=== PATIENT | male | born 1965 ===

== ENCOUNTER 2022-10-09 08:58 | Emergency (ER) | payer OTHER, SELFPAY ==
--- NOTE | ~2022-10-09 | XR_ITS ---
EXAMINATION: XR CHEST CLINICAL INFORMATION: Productive cough. COMPARISON: None available. TECHNIQUE: 2 views of the chest were obtained. FINDINGS: No significant abnormality is noted involving the heart, lungs, mediastinum, bony thorax or soft tissues. XR/XR chest 2V IMPRESSION: No acute cardiopulmonary process.
[2022-10-09 09:18] VITALS: BP 171/81; PULSE 68; RESP 16; TEMP 36.1; O2SAT 98
[2022-10-09 11:03] LABS: IDNOW Serial# 08D9AD1C; Strep A Nucleic Acid Negative (Negative)
--- NOTE | 2022-10-09 11:03 | ED_ITS ---
HPI - General Adult General Chief complaint: General Medical Stated complaint: Sore Throat Time Seen by Provider: 10/09/22 10:57 Source: patient, family and news reporter Mode of arrival: ambulatory Limitations: language barrier History of Present Illness HPI narrative: Patient is a 57-year-old male presenting to the emergency department with complaint of sore throat for three days as well as cough productive of yellow sputum. Denies fevers. 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 Patient reports that his symptoms worsen when at work. States patient does not typically wear a mask at work. Denies difficulty swallowing or eating/drinking. Denies shortness of breath. He has tried an OTC cough medicine as well as cough drops with little relief. Denies any chest pain, lower extremity edema, calf tenderness or swelling. MD complaint: sore throat, cough Onset (ago): day(s) Radiation: non-radiation Pain Consistency: constant Exacerbating factors: eating Associated symptoms: cough Treatments prior to arrival: other (OTC cough medicine) Related Data Previous Rx's Medication Instructions Recorded benzonatate 100 mg capsule 100 mg PO TID PRN cough #14 caps 10/09/22 Allergies Allergy/AdvReac Type Severity Reaction Status Date / Time No Known Allergies Allergy Verified 10/09/22 09:16 Review of Systems Review of Systems: As per HPI. Yes all other systems are reviewed and are negative Constitutional: Constitutional: Reports as per HPI [facility] Social History Social History Advance Directives: No Advance Directives Information Provided: Yes Physical Exam ED Vital Signs: Vital Signs - 24 hr 10/09/22 09:18 Temperature 97 F Pulse Rate 68 Respiratory Rate 16 Blood Pressure 171/81 H Pulse Oximetry 98 Oxygen Delivery Method Room Air BMI result Body Mass Index 30.0 Vital signs have been reviewed and appear to be correct. Blood pressure elevated. Heart rate normal. Respiratory rate normal. Temperature normal. Oxygen saturation normal. Const General: cooperative, healthy appearing and no acute distress Orientation/consciousness: oriented to person, oriented to place, oriented to time and patient oriented x3 Limitations: no limitations HENMT Head: Yes normocephalic and Yes atraumatic Ears: external ears normal, TM's normal bilaterally and EAC's normal General nose exam: Normal external nose present, Normal nares present and Normal septum present Face and sinus: Yes face symmetric Mouth: Normal oral and palatal mucosa present, oropharynx normal and moist mucous membranes Throat: Yes uvula midline, Yes posterior oropharynx abnormal (erythematous, no edema or exudate) and No uvular edema Eyes Pupils: Equal, round and reactive pupils present Neck Neck: Yes normal visual inspection, Yes no lymphadenopathy and Yes supple Resp Effort & Inspection: normal respiratory effort and able to speak in complete sentences Auscultation: clear to auscultation bilaterally Cardio Rate: regular rate Rhythm: regular rhythm Heart sounds: S1 normal heart sound present and S2 normal heart sound present GI Palpation (GI): Soft to palpation and nontender Auscultation: normoactive bowel sounds General: Yes no CVA tenderness Back/Spine/Pelvis Back: no CVA tenderness Skin General skin exam: elasticity normal and turgor normal Neuro General: oriented to person, oriented to place, oriented to time, patient oriented x3, moves all extremities, no focal motor deficits and CN's II-XI intact bilaterally Cranial nerves: Yes Equal, round and reactive pupils present Cognition (Neuro): normal cognition Extrem General: Yes full ROM, Yes no pedal edema and Yes no calf tenderness Psych Mental Status: mental status grossly normal Affect: normal affect Thought process: Normal thought process present Medical Decision Making Medical Decision Making MDM Narrative: Patient is a 57-year-old male presenting to the emergency department with complaint of sore throat for three days as well as cough productive of yellow sputum. On exam patient is awake, A+Ox3, VS WNL, afebrile, normal neurological exam without focal deficits, mild erythema to posterior oropharynx, no edema or exudate, no lymphadenopathy, LS CTA throughout. Given reported symptoms and physical exam findings, initial differential includes strep pharyngitis, viral pharyngitis/URI, allergic rhinitis, pneumonia. Labs notable for negative strep/flu/Covid . X-ray notable for no acute abnormalities. My interpretation is in agreement with the radiologist's interpretation. Feel symptoms are likely related to viral pharyngitis and/or allergen in the workplace. All results discussed and questions answered. Discussed with patient that symptoms should resolve on their own in the next few days. Return precautions discussed at bedside. Advised patient to utilize a mask at work if his area seems dirty/contaminated. Will prescribe benzonatate as needed for cough. Instructed patient to follow up with PCP this week regarding elevated BP readings in the ED. Patient and verbalized understanding of and agreement with plan. Differential Diagnosis Differential Diagnoses: The differential diagnosis associated with the presentation includes As per [facility]. Lab Data [facility] Lab Attestation statement: I reviewed the patient's lab results. As per [facility]. Labs: Lab Results 10/09/22 10/09/22 10/09/22 Range/Units 10:49 11:16 11:16 COVID-19 (JAMES) Negative (Negative) COVID-19 Clin Com See Note Influenza Type A (DELISA) Negative (Negative) Influenza Type B (DELISA) Negative (Negative) Influenza A & B Note See Note S. pyogenes GrpA DELISA Negative (Negative) Independent Interpretation I performed an independent interpretation of an: Plain X-Ray Interpretation: No acute abnormalities Radiology Impression Discussion of test interpretation with radiology: I have reviewed the radiologist's reading. Radiologist Impression: FINDINGS: No significant abnormality is noted involving the heart, lungs, mediastinum, bony thorax or soft tissues. XR/XR chest 2V IMPRESSION: No acute cardiopulmonary process. Independent Historian Clinical information obtained from an independent historian. History obtained from or confirmed by: Spouse External Record Review External record reviewed: Inpatient record, Office record and Outpatient record Prescription Management I considered prescription management with: Other (benzonatate) Discharge Plan Discharge Clinical Impression: Acute viral pharyngitis, Cough, HBP (high blood pressure) Patient Disposition: Home, Self-Care Instructions: Pharyngitis (ED), Hypertension (ED), Acute Cough (ED) Additional Instructions: Hoy lo evaluaron en el departamento de emergencias por dolor de garganta y tos. Clark radiograf?a de t?rax no mostr? evidencia de neumon?a. Lo m?s probable es que clark dolor de garganta se deba a amparo enfermedad viral que mejorar? por s? ligia con descanso y l?quidos. Clark tos podr?a estar relacionada con la enfermedad viral, kenia tambi?n podr?a empeorar con el polvo y la suciedad en clark lugar de trabajo. Debe usar amparo m?scara en el trabajo si siente que clark tos empeora all?. Le est?n recetando benzonatato para la tos. Programe amparo james de seguimiento con clark m?dico de atenci?n primaria dentro de los 2 d?as. Clark presi?n arterial era idalia en el servicio de urgencias hoy, mencione esto a clark proveedor de atenci?n primaria para amparo evaluaci?n adicional. Regrese al departamento de emergencias si experimenta tos que empeora, fiebre de 100.4? F o m?s, v?mitos recurrentes, dolor en el pecho, dificultad para respirar o cualquier otro s?ntoma preocupante. Prescriptions: New benzonatate 100 mg capsule 100 mg PO TID PRN (Reason: cough) Qty: 14 0RF Print Language: Arabic
[2022-10-09 11:37] LABS: COVID-19 Test Negative (Negative); IDNOW Serial# BCCEAD1C
[2022-10-09 11:38] LABS: IDNOW Serial# 9DB6401D; Influenza A Negative (Negative); Influenza B2 Negative (Negative)
[2022-10-09 13:03] VITALS: BP 185/92; PULSE 65; RESP 16; TEMP 36.4; O2SAT 99
--- NOTE | 2022-10-09 13:15 | PC.NURSE ---
aox4. calm, cooperative. uderstands instructions- no questions. walks well. no distress
== END 2022-10-09 13:16 | disposition home or self-care (01) ==
PROVIDERS: Registered Nurse Emergency; Emergency Provider Emergency Medicine
DX: J02.8 Acute pharyngitis due to other specified organisms (principal); R05.9 Cough, unspecified; I10 Essential (primary) hypertension; Z20.822 Contact with and (suspected) exposure to COVID-19
CPT/HCPCS: 71046; 87502; 87635; 87651; 99283

== ENCOUNTER 2023-02-26 10:52 | Outpatient (REF) | payer OTHER, SELFPAY ==
[2023-02-26 13:38] LABS: MANUAL DIFF FLAG NO
[2023-02-26 14:00] LABS: Basophils Percent Auto 0.4 % (0-2); Eosinophils Absolute Auto 0.4 X10*3/uL (0.0-0.4); Eosinophils Percent Auto 5.2 % (0-4); Hematocrit 52.6 % (42.0-52.0); Hemoglobin 16.4 g/dl (14.0-18.0); Imm Gran Abs Auto 0.01 X10*3/uL (0.00-0.03); Imm Gran Pct Auto 0.1 % (0.0-0.4); Lymphocytes Absolute Auto 3.4 X10*3/uL (1.2-4.9); Lymphocytes Percent Auto 45.2 % (20-40); Mean Corpuscular HGB Conc 31.2 g/dl (31.0-36.0); Mean Corpuscular Hemoglobin 28.3 pg (27.0-33.0); Mean Corpuscular Volume 90.7 fL (80.0-98.0); Mean Platelet Volume 13.8 fL (9.4-12.4); Monocytes Absolute Auto 0.9 X10*3/uL (0.1-1.2); Monocytes Percent Auto 11.4 % (2-11); Neutrophils Absolute Auto 2.8 x10*3/uL (2.0-8.3); Neutrophils Percent Auto 37.7 % (45-73); Platelet Count 159 X10*3/uL (160-400); Red Cell Distribution Width 14.8 % (11.0-16.0); White Blood Count 7.5 X10*3/uL (4.8-10.8)
[2023-02-26 14:07] LABS: Estimated Average Glucose 146 mg/dL; Hemoglobin A1c % 6.7 % (<6.0)
[2023-02-26 14:46] LABS: Alanine Aminotransferase 20 U/L (0-40); Albumin Level 4.3 g/dL (3.5-5.0); Alkaline Phosphatase 74 U/L (39-117); Anion Gap 14 (12-20); Aspartate Amino Transferase 24 U/L (5-37); Bilirubin Direct 0.1 mg/dL (0.0-0.5); Bilirubin Total 0.3 mg/dL (0.0-1.0); Blood Urea Nitrogen 14 mg/dL (9-16); Calcium 9.8 mg/dL (8.4-10.2); Carbon Dioxide 26 mmol/L (22-29); Chloride 106 mmol/L (96-108); Cholesterol 186 mg/dL (<200); Estimated Glomerular Filt Rate > 60; Glucose Random 122 mg/dL (60-115); HDL Cholesterol 45 mg/dL (>40); LDL Cholesterol Calculated 124 mg/dL (<100); Potassium 4.7 mmol/L (3.3-5.1); Sodium 141 mmol/L (135-145); Total Protein 7.6 g/dL (6.5-8.0); Triglycerides 86 mg/dL (<150)
[2023-02-27 08:51] LABS: HIV AB/AG Nonreactive (Nonreactive); HIV Num 1 0.05 S/CO (0.00-0.99); ~HepC Num1 0.16 S/CO (0.00-0.79); ~Hepatitis C Antibody Nonreactive (Nonreactive)
== END 2023-02-26 10:53 | disposition home or self-care (01) ==
LOC: HO.HHCL 10:52
PROVIDERS: Visit Provider Internal Medicine
DX: I10 Essential (primary) hypertension (principal)
CPT/HCPCS: 36415; 80048; 80061; 80076; 83036; 85025; 86803; 87389

== ENCOUNTER 2023-06-25 15:58 | Emergency (ER) | payer OTHER, SELFPAY ==
--- NOTE | ~2023-06-25 | CT_ITS ---
EXAMINATION: CT ABDOMEN AND PELVIS WITHOUT CONTRAST CLINICAL INFORMATION: Right upper quadrant/right flank pain. COMPARISON: None available. TECHNIQUE: Multidetector volumetric imaging was performed from the superior aspect of the liver through the pubic symphysis. Sagittal and coronal reformatted images were obtained on the technologist's workstation. This CT examination was performed using dose optimization techniques as appropriate, variously including the following: *Automated exposure control. *Adjustment of mA and/or kV according to patient size (this includes techniques or standardized protocols for targeted exams where dose is matched to indication/reason for exam; i.e. extremities or head). *Use of iterative reconstruction technique. DLP: 528 mGy-cm FINDINGS: LUNG BASES: Somewhat linear scarring versus atelectasis within the lung bases. No confluent airspace consolidation. LIVER, GALLBLADDER, AND BILIARY TREE: The liver is normal in size, shape, and attenuation. No focal hepatic lesion or biliary ductal dilatation is present. The gallbladder is unremarkable with no evidence of radiopaque gallstones, gallbladder wall thickening, or obvious pericholecystic inflammatory changes. PANCREAS: Unremarkable. SPLEEN: Unremarkable. ADRENAL GLANDS: Unremarkable. KIDNEYS AND URETERS: The kidneys are normal in size, shape, and attenuation. No hydronephrosis, hydroureter, or calculi seen. No perinephric stranding. BLADDER: Unremarkable. No wall thickening or inflammatory change. No bladder calcification. GASTROINTESTINAL TRACT: No small or large bowel obstruction. No bowel wall thickening or inflammatory change. There are a few scattered sigmoid diverticula without evidence of acute diverticulitis. Unremarkable appendix. PERITONEAL CAVITY: No intra-abdominal free air or free fluid. No intra-abdominal mass or organized fluid collection/abscess formation. ABDOMINAL WALL: No significant hernia is appreciated. LYMPH NODES: No significant lymphadenopathy. VASCULAR: No abdominal aortic dilatation. Scattered atherosclerotic calcifications. PELVIC VISCERA: Mild prostatomegaly. OSSEOUS STRUCTURES: Unremarkable. CT/CT abdomen pelvis wo IV con IMPRESSION: 1. No hydronephrosis or nephrolithiasis. Unremarkable urinary bladder. 2. No small or large bowel obstruction. No bowel wall thickening or inflammatory change. Minimal sigmoid diverticulosis without evidence of acute diverticulitis. Unremarkable appendix. 3. No intra-abdominal mass, lymphadenopathy, or ascites. 4. Mild prostatomegaly. Fleischner guidelines were followed.
--- NOTE | 2023-06-25 16:45 | ED_ITS ---
HPI - General Adult General Chief complaint: Abdominal Pain Stated complaint: abdominal pain going to back Time Seen by Provider: 06/26/23 01:02 Source: patient and family Mode of arrival: EMS Limitations: language barrier Related Data Previous Rx's ?Medication ?Instructions ?Recorded benzonatate 100 mg capsule 100 mg PO TID PRN cough #14 caps 10/09/22 aluminum hydrox-magnesium carb 254 10 ml PO QID PRN dyspepsia #355 mL 06/26/23 mg-237.5 mg/5 mL oral suspension (Gaviscon Extra Strength) omeprazole 20 mg capsule,delayed 20 mg PO DAILY 30 days #30 caps 06/26/23 release Allergies Allergy/AdvReac Type Severity Reaction Status Date / Time No Known Allergies Allergy Verified 06/25/23 16:48 [facility] Social History Social History Advance Directives: No Advance Directives Information Provided: No Physical Exam ED Vital Signs: Vital Signs - 24 hr 06/25/23 16:46 06/26/23 01:17 Temperature 98.4 F 98.0 F Pulse Rate 81 76 Respiratory Rate 16 16 Blood Pressure 174/94 H 163/79 H Pulse Oximetry 98 98 Oxygen Delivery Method Room Air Room Air BMI result Body Mass Index 28.2 Course Course Course Narrative: RME:?58 yo male here for eval of intermittent RUQ abdominal pain x3 days. +radiation to right flank. not worse with eating. denies N/V/D, dysuria, hematuria. labs, UA, CT ordered. Full HPI, ROS and PE to be performed by the primary ED provider. Medical Decision Making Lab Data MDM Lab Attestation statement: I reviewed the patient's lab results. 06/25/23 17:46 06/25/23 17:46 Labs: Lab Results 06/25/23 Range/Units 17:46 WBC 8.6 (4.8-10.8) X10*3/uL RBC 5.23 (4.60-5.80) X10*6/uL Hgb 15.0 (14.0-18.0) g/dl Hct 46.8 (42.0-52.0) % MCV 89.5 (80.0-98.0) fL MCH 28.7 (27.0-33.0) pg MCHC 32.1 (31.0-36.0) g/dl RDW 14.0 (11.0-16.0) % Plt Count 163 (160-400) X10*3/uL MPV 12.4 (9.4-12.4) fL Immature Gran % (Auto) 0.1 (0.0-0.4) % Neut % (Auto) 33.8 L (45-73) % Lymph % (Auto) 46.9 H (20-40) % [place] % (Auto) 12.7 H (2-11) % Eos % (Auto) 6.0 H (0-4) % Baso % (Auto) 0.5 (0-2) % Lymph # (Auto) 4.1 (1.2-4.9) X10*3/uL [place] # (Auto) 1.1 (0.1-1.2) X10*3/uL Eos # (Auto) 0.5 H (0.0-0.4) X10*3/uL Baso # (Auto) 0.0 (0.0-0.2) X10*3/uL Abs Immat Gran (auto) 0.01 (0.00-0.03) X10*3/uL Absolute Neuts (auto) 2.9 (2.0-8.3) x10*3/uL Absolute Nucleated RBC 0.000 (0.0-0.012) X10*3/uL Nucleated RBC % (auto) 0.0 (0.0-0.2) /100WBC Sodium 139 (135-145) mmol/L Potassium 4.5 (3.3-5.1) mmol/L Chloride 107 (96-108) mmol/L Carbon Dioxide 26 (22-29) mmol/L Anion Gap 11 L (12-20) BUN 12 (9-16) mg/dL Creatinine 0.99 (0.5-1.4) mg/dL Estim Creat Clear Calc 75.9 Estimated GFR > 60 Random Glucose 115 (60-115) mg/dL Calcium 9.2 D (8.4-10.2) mg/dL Magnesium 2.1 (1.6-2.6) mg/dL Total Bilirubin 0.2 (0.0-1.0) mg/dL AST 22 (5-37) U/L ALT 25 (0-40) U/L Alkaline Phosphatase 78 (39-117) U/L Total Protein 7.7 (6.5-8.0) g/dL Albumin 4.1 (3.5-5.0) g/dL Lipase 24 (8-78) U/L Radiology Impression Discussion of test interpretation with radiology: I have reviewed the radiologist's reading. Radiologist Impression: EXAMINATION: CT ABDOMEN AND PELVIS WITHOUT CONTRAST CLINICAL INFORMATION: Right upper quadrant/right flank pain. COMPARISON: None available. FINDINGS: LUNG BASES: Somewhat linear scarring versus atelectasis within the lung bases. No confluent airspace consolidation. LIVER, GALLBLADDER, AND BILIARY TREE: The liver is normal in size, shape, and attenuation. No focal hepatic lesion or biliary ductal dilatation is present. The gallbladder is unremarkable with no evidence of radiopaque gallstones, gallbladder wall thickening, or obvious pericholecystic inflammatory changes. PANCREAS: Unremarkable. SPLEEN: Unremarkable. ADRENAL GLANDS: Unremarkable. KIDNEYS AND URETERS: The kidneys are normal in size, shape, and attenuation. No hydronephrosis, hydroureter, or calculi seen. No perinephric stranding. BLADDER: Unremarkable. No wall thickening or inflammatory change. No bladder calcification. GASTROINTESTINAL TRACT: No small or large bowel obstruction. No bowel wall thickening or inflammatory change. There are a few scattered sigmoid diverticula without evidence of acute diverticulitis. Unremarkable appendix. PERITONEAL CAVITY: No intra-abdominal free air or free fluid. No intra-abdominal mass or organized fluid collection/abscess formation. ABDOMINAL WALL: No significant hernia is appreciated. LYMPH NODES: No significant lymphadenopathy. VASCULAR: No abdominal aortic dilatation. Scattered atherosclerotic calcifications. PELVIC VISCERA: Mild prostatomegaly. OSSEOUS STRUCTURES: Unremarkable. IMPRESSION: 1. No hydronephrosis or nephrolithiasis. Unremarkable urinary bladder. 2. No small or large bowel obstruction. No bowel wall thickening or inflammatory change. Minimal sigmoid diverticulosis without evidence of acute diverticulitis. Unremarkable appendix. 3. No intra-abdominal mass, lymphadenopathy, or ascites. 4. Mild prostatomegaly. Fleischner guidelines were followed. Dictated By: Socrates Brower MD Discharge Plan Discharge Clinical Impression: Gastritis Qualifiers: Chronicity: acute Gastritis bleeding: without bleeding Abdominal pain Qualifiers: Abdominal location: right upper quadrant Qualified Code(s): R10.11 - Right upper quadrant pain Patient Disposition: Home, Self-Care Instructions: Gastritis (ED) Additional Instructions: Your blood work was normal The CT scan of your abdomen pelvis with IV contrast did not reveal any cause for your pain, your gallbladder appeared to be normal, it was not swollen or inflamed. Your symptoms are consistent with inflammation of your stomach (gastritis) Take Prilosec (omeprazole) 20 mg pills, 1 pill once a day for 1 month. ?This medication shuts off your acid production and lets the inflammation in your stomach and esophagus heal. Take extra-strength Gaviscon 10 mL (2 tsp) 4 times a day as needed for abdominal pain. I ordered an outpatient ultrasound on you to evaluate you for possible gallstones which could be a cause of your pain as well as gastritis. You will need to follow-up with your doctor to get this ultrasound result. Follow-up with your doctor in 2 days. Please return to the emergency department if your symptoms get worse or if you develop any symptoms that are concerning to you. Prescriptions: New omeprazole 20 mg capsule,delayed release(DR/EC) 20 mg PO DAILY 30 Days Qty: 30 0RF Gaviscon Extra Strength 254-237.5 mg/5 mL suspension 10 ml PO QID PRN (Reason: dyspepsia) Qty: 355 0RF No Action benzonatate 100 mg capsule 100 mg PO TID PRN (Reason: cough) Qty: 14 0RF Print Language: Latvian
[2023-06-25 16:46] VITALS: BP 174/94; PULSE 81; RESP 16; TEMP 36.9; O2SAT 98; BMI 28.2
[2023-06-25 17:50] LABS: MANUAL DIFF FLAG NO
[2023-06-25 17:51] LABS: Basophils Percent Auto 0.5 % (0-2); Eosinophils Absolute Auto 0.5 X10*3/uL (0.0-0.4); Hematocrit 46.8 % (42.0-52.0); Imm Gran Abs Auto 0.01 X10*3/uL (0.00-0.03); Imm Gran Pct Auto 0.1 % (0.0-0.4); Lymphocytes Absolute Auto 4.1 X10*3/uL (1.2-4.9); Lymphocytes Percent Auto 46.9 % (20-40); Mean Corpuscular HGB Conc 32.1 g/dl (31.0-36.0); Mean Corpuscular Hemoglobin 28.7 pg (27.0-33.0); Mean Corpuscular Volume 89.5 fL (80.0-98.0); Mean Platelet Volume 12.4 fL (9.4-12.4); Monocytes Absolute Auto 1.1 X10*3/uL (0.1-1.2); Monocytes Percent Auto 12.7 % (2-11); Neutrophils Absolute Auto 2.9 x10*3/uL (2.0-8.3); Neutrophils Percent Auto 33.8 % (45-73); Platelet Count 163 X10*3/uL (160-400); Red Blood Count 5.23 X10*6/uL (4.60-5.80); White Blood Count 8.6 X10*3/uL (4.8-10.8)
[2023-06-25 18:08] LABS: Alanine Aminotransferase 25 U/L (0-40); Albumin Level 4.1 g/dL (3.5-5.0); Alkaline Phosphatase 78 U/L (39-117); Anion Gap 11 (12-20); Aspartate Amino Transferase 22 U/L (5-37); Bilirubin Total 0.2 mg/dL (0.0-1.0); Blood Urea Nitrogen 12 mg/dL (9-16); Calcium 9.2 mg/dL (8.4-10.2); Carbon Dioxide 26 mmol/L (22-29); Chloride 107 mmol/L (96-108); Creatinine Clr Calc Pharmacy 75.9; Estimated Glomerular Filt Rate > 60; Glucose Random 115 mg/dL (60-115); Lipase 24 U/L (8-78); Magnesium 2.1 mg/dL (1.6-2.6); Potassium 4.5 mmol/L (3.3-5.1); Sodium 139 mmol/L (135-145); Total Protein 7.7 g/dL (6.5-8.0)
--- NOTE | 2023-06-26 01:11 | MHC.EDTECH ---
Assumed care at 01:10
[2023-06-26 01:17] VITALS: BP 163/79; PULSE 76; RESP 16; TEMP 36.7; O2SAT 98
[2023-06-26 02:50] VITALS: BP 137/76; PULSE 62; RESP 14; TEMP 36.4; O2SAT 97
== END 2023-06-26 02:51 | disposition home or self-care (01) ==
PROVIDERS: Physician Assistant Medical; Emergency Provider Emergency Medicine Emergency Medical Services; PCP Internal Medicine
DX: K29.70 Gastritis, unspecified, without bleeding (principal); R10.11 Right upper quadrant pain; Z79.899 Other long term (current) drug therapy
CPT/HCPCS: 36415; 74176; 80053; 83690; 83735; 85025; 99284

== ENCOUNTER 2023-06-28 11:33 | Outpatient (REF) | payer OTHER, SELFPAY ==
--- NOTE | ~2023-06-28 | XR_ITS ---
EXAMINATION: XR THORACIC SPINE CLINICAL INFORMATION: Thoracic pain that radiates anteriorly to right upper quadrant COMPARISON: Previous chest x-ray September 2022 TECHNIQUE: 3 views of the thoracic spine were obtained. FINDINGS: There is no fracture or bone destruction seen and the vertebral alignment is normal. There is no disc space narrowing. There is no abnormality of the paraspinal soft tissues. XR/XR thoracic spine 3V IMPRESSION: Unremarkable examination.
== END 2023-06-28 11:34 | disposition home or self-care (01) ==
LOC: HO.HHCX 11:33
PROVIDERS: Visit Provider Emergency Medicine
DX: R10.11 Right upper quadrant pain (principal)
CPT/HCPCS: 72072

== ENCOUNTER 2023-06-28 12:27 | Outpatient (REF) | payer OTHER, SELFPAY ==
--- NOTE | ~2023-06-28 | US_ITS ---
EXAMINATION: US ABDOMEN COMPLETE CLINICAL INFORMATION: Right upper quadrant pain. COMPARISON: Previous CT of the abdomen and pelvis 06/25/2023 TECHNIQUE: Real-time imaging of the abdominal viscera. FINDINGS: PANCREAS: Normal. ABDOMINAL AORTA: The proximal, mid, and distal segments are normal in caliber. INFERIOR VENA CAVA: Visualized portions are normal. LIVER: Normal. The liver is normal in size. The liver contour is normal. Parenchymal echogenicity is normal. No focal hepatic lesion. There is no intrahepatic biliary duct dilatation seen. GALLBLADDER: Normal. The gallbladder is physiologically distended without evidence of stones, sludge, polyps, wall thickening or pericholecystic fluid. COMMON BILE DUCT: Normal in caliber measuring 0.3 cm in diameter. RIGHT KIDNEY: Normal. No hydronephrosis. No renal calculi or focal parenchymal lesions. The kidney measures 11.4 cm in maximum dimension. LEFT KIDNEY: Normal. No hydronephrosis. No renal calculi or focal parenchymal lesions. The kidney measures 10 cm in maximum dimension. SPLEEN: Normal. The spleen measures 7 cm in maximum dimension. FREE FLUID: None. US/US abdomen complete IMPRESSION: Unremarkable exam.
== END 2023-06-28 12:28 | disposition home or self-care (01) ==
LOC: HO.US 12:27
PROVIDERS: Visit Provider Emergency Medicine
DX: R10.11 Right upper quadrant pain (principal)
CPT/HCPCS: 76700

== ENCOUNTER 2023-08-14 14:02 | Outpatient (REF) | payer OTHER, SELFPAY ==
[2023-08-14 15:43] LABS: Lipase 26 U/L (8-78)
[2023-08-14 15:44] LABS: Creatinine Urine 142.62 mg/dL; Microalbum/Creatinine Ratio Ur 4.9 ug/mg cr (<30)
[2023-08-19 21:03] LABS: Transglutaminase Ab IgG 1.6 U/mL; Transglutaminase IgA <1.0 U/mL
== END 2023-08-14 14:03 | disposition home or self-care (01) ==
LOC: HO.LAB 14:02
PROVIDERS: PCP Internal Medicine; Visit Provider Nurse Practitioner Family
DX: E11.9 Type 2 diabetes mellitus without complications (principal); R10.13 Epigastric pain; R10.11 Right upper quadrant pain; K21.9 Gastro-esophageal reflux disease without esophagitis; K59.01 Slow transit constipation; K59.04 Chronic idiopathic constipation
CPT/HCPCS: 36415; 82043; 82570; 83690; 86364; 99202

== ENCOUNTER 2023-08-14 14:02 | Outpatient (AMB) | payer OTHER, SELFPAY ==
--- NOTE | 2023-08-14 14:03 | A.OFFVIS_ITS ---
Vital Signs 08/14/23 14:04 Height 5 ft 5 in Weight 169 lb BMI 28.1 BP 171/80 H Blood Pressure Location Lt brachial Position Sitting Pulse 75 Intake Visit Reasons: Abdominal pain Intake Note: Reed presents in the office as a follow up for adominal pains CC: Sometimes when he eats he will get pains in the right side. States that he does not have constipation or diarrhea. Market Specialist Required: Yes Market Specialist Name: Anita [id number] Allergies No Known Allergies Allergy (Verified 06/25/23 16:48) HPI HPI Abdominal pain: Details: 58 years old male is here today for initial consultation. Patient was sent by PCP for evaluation of his abdominal pain. Patient reports right upper quadrant pain postprandially. Had abdominal ultrasound done that did not show any acute processes to explain his pain. Patient reports acid reflux. Patient reports that he is on omeprazole 20 mg daily and feels that it has not working for him. Still has epigastric pain postprandially. Patient admits that he does not move his bowels completely. Patient reports that he does have a bowel movement d aily, however he states that every few days he has trouble moving his bowels. Patient admits to be eating food that is fried at times. Denies melena, hematochezia, unintentional weight loss or ribbon like stools. Patient reports occasional dyspepsia without dysphagia or odynophagia Review of Systems Const Denies weight gain and Denies weight loss ENT Reports no additional complaints, Denies dysphagia and Denies odynophagia Card Reports no additional complaints Resp Reports no additional complaints GI Reports abdominal pain (RUQ, epigastric), Denies belching, Denies melena, Denies bloating, Reports constipation, Denies dysphagia, Denies excessive flatus, Denies dyspepsia, Reports heartburn, Denies diarrhea, Denies loose stools, Denies nausea, Denies odynophagia and Denies vomiting Reports no additional complaints Musc Reports no additional complaints Neuro Reports no additional complaints Psych Reports no additional complaints Endo Reports no additional complaints Physical Exam Vital Signs: Last Vital Signs Pulse 75 08/14/23 14:04 BP 171/80 H 08/14/23 14:04 BMI result Body Mass Index 28.1 Const General: healthy appearing and no acute distress Nutritional Appearance: obese Orientation/consciousness: patient oriented x3 Resp Effort & Inspection: normal respiratory effort, able to speak in complete sentences, no tracheal deviation and symmetric chest movement Auscultation: clear to auscultation bilaterally Cardio Rate: regular rate GI Inspection: Yes normal to inspection and No distended Palpation (GI): Soft to palpation, not firm, nontender and No hepatosplenomegaly present Auscultation: normal bowel sounds General: Yes no CVA tenderness Back/Spine/Pelvis Back: no CVA tenderness Skin General skin exam: elasticity normal, turgor normal and dry skin Neuro General: patient oriented x3 Psych Appearance: grossly normal Mental Status: mental status grossly normal Results Reviewed Results Reviewed: ABDOMINAL ULTRASOUND JUNE 24 FINDINGS: LUNG BASES: Somewhat linear scarring versus atelectasis within the lung bases. No confluent airspace consolidation. LIVER, GALLBLADDER, AND BILIARY TREE: The liver is normal in size, shape, and attenuation. No focal hepatic lesion or biliary ductal dilatation is present. The gallbladder is unremarkable with no evidence of radiopaque gallstones, gallbladder wall thickening, or obvious pericholecystic inflammatory changes. PANCREAS: Unremarkable. SPLEEN: Unremarkable. ADRENAL GLANDS: Unremarkable. KIDNEYS AND URETERS: The kidneys are normal in size, shape, and attenuation. No hydronephrosis, hydroureter, or calculi seen. No perinephric stranding. BLADDER: Unremarkable. No wall thickening or inflammatory change. No bladder calcification. GASTROINTESTINAL TRACT: No small or large bowel obstruction. No bowel wall thickening or inflammatory change. There are a few scattered sigmoid diverticula without evidence of acute diverticulitis. Unremarkable appendix. PERITONEAL CAVITY: No intra-abdominal free air or free fluid. No intra-abdominal mass or organized fluid collection/abscess formation. ABDOMINAL WALL: No significant hernia is appreciated. LYMPH NODES: No significant lymphadenopathy. VASCULAR: No abdominal aortic dilatation. Scattered atherosclerotic calcifications. PELVIC VISCERA: Mild prostatomegaly. OSSEOUS STRUCTURES: Unremarkable. IMPRESSION: 1. No hydronephrosis or nephrolithiasis. Unremarkable urinary bladder. 2. No small or large bowel obstruction. No bowel wall thickening or inflammatory change. Minimal sigmoid diverticulosis without evidence of acute diverticulitis. Unremarkable appendix. 3. No intra-abdominal mass, lymphadenopathy, or ascites. 4. Mild prostatomegaly. Assessment & Plan Assessment & Plan (1) Postprandial epigastric pain: Code(s): R10.13 - Epigastric pain (2) Postprandial abdominal pain in right upper quadrant: Code(s): R10.11 - Right upper quadrant pain (3) GERD (gastroesophageal reflux disease): Code(s): K21.9 - Gastro-esophageal reflux disease without esophagitis Qualifiers: Esophagitis presence: esophagitis presence not specified Qualified Code(s): K21.9 - Gastro-esophageal reflux disease without esophagitis (4) Constipation: Code(s): K59.00 - Constipation, unspecified Qualifiers: Constipation type: slow transit constipation Qualified Code(s): K59.01 - Slow transit constipation Plan Will rule cholecystitis, biliary colic, biliary dyskinesia and send him for HIDA scan. Will rule out pancreatitis and celiac disease. Patient will stop omeprazole 20 mg and will take omeprazole 40 mg daily. Avoid dietary triggers and late night snacking. Staying off way from food that is spicy, fried. Patient will start taking senna 2 tablets every evening. Increase fluid intake and activity to promote better bowel motility. Patient will return in the office in 2 months, sooner on as needed basis. He he is agreeable to this plan and verbalizes understanding of instructions. Thank you for allowing me to participate in his care Orders: Orders Transglutaminase IgA 08/14/23 R10.9 - Unspecified abdominal pain NM hepatobiliary w pharm 08/14/23 R10.11 - Right upper quadrant pain Transglutaminase Ab IgG 08/14/23 R10.9 - Unspecified abdominal pain Lipase 08/14/23 R10.9 - Unspecified abdominal pain Medications: New sennosides (Senokot) 17.2 mg (2 x 8.6 mg) PO DAILY 180 tabs 3RF K59.04 - Chronic idiopathic constipation Coding Level of Care Code New Pt Level 4 (77611) Diagnoses Postprandial epigastric pain R10.13 Postprandial abdominal pain in right upper quadrant R10.11 Gastroesophageal reflux disease, unspecified whether esophagitis present K21.9 Esophagitis presence: esophagitis presence not specified Slow transit constipation K59.01 Constipation type: slow transit constipation Time Spent (min) 45 Comment 30 minutes spent with patient and additional 15 minutes spent reviewing his records
[2023-08-14 14:04] VITALS: BP 171/80; PULSE 75; BMI 28.1
== END 2023-08-14 14:26 | disposition home or self-care (01) ==
PROVIDERS: PCP Internal Medicine; Visit Provider Nurse Practitioner Family
DX: R10.13 Epigastric pain (principal); R10.11 Right upper quadrant pain; K21.9 Gastro-esophageal reflux disease without esophagitis; K59.01 Slow transit constipation
CPT/HCPCS: 99204

== ENCOUNTER 2023-10-18 15:56 | Outpatient (AMB) | payer OTHER, SELFPAY ==
--- NOTE | 2023-10-18 15:57 | MHC.OFFVIS ---
Vital Signs 10/18/23 15:59 Height 5 ft 5 in Weight 171 lb 15.369 oz BMI 28.6 BP 149/72 H Blood Pressure Location Lt brachial Position Sitting Pulse 63 Intake Visit Reasons: 2 month f/u Intake Note: Reed present in the office as a 2 month follow up. CC: He states that he is having gas in the right side of his abdomen. He denies any irregular bowel movements. National Park Tour Guide Required: Yes National Park Tour Guide Name: [id number] Odin Allergies No Known Allergies Allergy (Verified 10/18/23 15:59) HPI HPI 2 month f/u: Details: LAST VISIT: Postprandial epigastric pain Postprandial abdominal pain in right upper quadrant GERD (gastroesophageal reflux disease) Constipation Plan Will rule cholecystitis, biliary colic, biliary dyskinesia and send him for HIDA scan. Will rule out pancreatitis and celiac disease. Patient will stop omeprazole 20 mg and will take omeprazole 40 mg daily. Avoid dietary triggers and late night snacking. Staying off way from food that is spicy, fried. Patient will start taking senna 2 tablets every evening. Increase fluid intake and activity to promote better bowel motility. Patient will return in the office in 2 months, sooner on as needed basis. He he is agreeable to this plan and verbalizes understanding of instructions. ? Thank you for allowing me to participate in his care Orders Orders Transglutaminase IgA 08/14/23 R10.9 NM hepatobiliary w pharm 08/14/23 R10.11 Transglutaminase Ab IgG 08/14/23 R10.9 Lipase 08/14/23 R10.9 Medications New sennosides (Senokot) 17.2 mg (2 x 8.6 mg) PO DAILY 180 tabs 3RF K59.04 TODAY'S VISIT Patient is here today for follow-up and to discuss lab results. Patient reports that he has been continuing with abdominal pain. Not taking Senokot. Irregular bowel movements. Occasional loose stools but for the most part he feels constipated. HIDA scan scheduled for November 03. Normal lipase, normal transglutaminase. Patient also reports abdominal bloating mostly towards the end of the day. Patient denies any nausea or vomiting. Denies any melena, hematochezia, unintentional weight loss or ribbon like stools. Patient denies any dyspepsia, dysphagia or odynophagia. [facility] Surgical History (Updated 10/18/23 @ 16:00 by ROMI Dumas) Hx of colonoscopy Hx of thyroidectomy Review of Systems Const Denies weight gain and Denies weight loss ENT Reports no additional complaints, Denies dysphagia and Denies odynophagia Card Reports no additional complaints Resp Reports no additional complaints GI Reports abdominal pain, Denies belching, Denies melena, Denies bloating, Denies change in bowel habits, Reports constipation, Denies dysphagia, Denies excessive flatus, Denies dyspepsia, Denies heartburn, Denies diarrhea, Denies loose stools, Denies nausea, Denies odynophagia and Denies vomiting Reports no additional complaints Musc Reports no additional complaints Neuro Reports no additional complaints Psych Reports no additional complaints Endo Reports no additional complaints Physical Exam Vital Signs: Last Vital Signs Pulse 63 10/18/23 15:59 BP 149/72 H 10/18/23 15:59 BMI result Body Mass Index 28.6 Const General: healthy appearing and no acute distress Nutritional Appearance: obese Orientation/consciousness: patient oriented x3 Resp Effort & Inspection: normal respiratory effort, able to speak in complete sentences, no tracheal deviation and symmetric chest movement Auscultation: clear to auscultation bilaterally Cardio Rate: regular rate GI Inspection: Yes normal to inspection and No distended Palpation (GI): Soft to palpation, not firm, nontender and No hepatosplenomegaly present Auscultation: normal bowel sounds General: Yes no CVA tenderness Back/Spine/Pelvis Back: no CVA tenderness Skin General skin exam: elasticity normal, turgor normal and dry skin Neuro General: patient oriented x3 Psych Appearance: grossly normal Mental Status: mental status grossly normal Results Reviewed Results Reviewed: Laboratory Tests 08/14/23 14:48 Lipase 26 Tiss Transglutamin IgG 1.6 Tiss Transglutamin IgA <1.0 Assessment & Plan Assessment & Plan (1) Postprandial epigastric pain: Code(s): R10.13 - Epigastric pain (2) Postprandial abdominal pain in right upper quadrant: Code(s): R10.11 - Right upper quadrant pain (3) GERD (gastroesophageal reflux disease): Code(s): K21.9 - Gastro-esophageal reflux disease without esophagitis Qualifiers: Esophagitis presence: esophagitis presence not specified Qualified Code(s): K21.9 - Gastro-esophageal reflux disease without esophagitis (4) Constipation: Code(s): K59.00 - Constipation, unspecified Qualifiers: Constipation type: slow transit constipation Qualified Code(s): K59.01 - Slow transit constipation Plan Patient was encouraged to take senna every day. Avoid dietary triggers. Increase fluid intake and activity to promote bowel motility. Will review HIDA scan. We are ruling out for blocked bile duct, biliary dyskinesia. Patient will follow-up in the office in 2-3 months, sooner on as needed basis. He is agreeable to this plan and verbalizes understanding of instructions. He was given the opportunity to ask questions and all questions answered. Thank you for allowing me to participate in his care Coding Level of Care Code Est Pt Level 3 (60700) Diagnoses Postprandial epigastric pain R10.13 Postprandial abdominal pain in right upper quadrant R10.11 Gastroesophageal reflux disease, unspecified whether esophagitis present K21.9 Esophagitis presence: esophagitis presence not specified Slow transit constipation K59.01 Constipation type: slow transit constipation Time Spent (min) 30 Comment 20 minutes spent with patient and additional 10 minutes spent reviewing his records
[2023-10-18 15:59] VITALS: BP 149/72; PULSE 63; BMI 28.6
== END 2023-10-18 17:02 | disposition home or self-care (01) ==
PROVIDERS: PCP Internal Medicine; Visit Provider Nurse Practitioner Family
DX: R10.13 Epigastric pain (principal); R10.11 Right upper quadrant pain; K21.9 Gastro-esophageal reflux disease without esophagitis; K59.01 Slow transit constipation
CPT/HCPCS: 99213

== ENCOUNTER → 2023-10-18 15:56 | Outpatient (BNVA) | payer OTHER, SELFPAY | PROVIDERS: PCP Internal Medicine; Visit Provider Nurse Practitioner Family | DX: K59.01 Slow transit constipation (principal); K21.9 Gastro-esophageal reflux disease without esophagitis; R10.13 Epigastric pain; R10.11 Right upper quadrant pain | CPT/HCPCS: 99212 ==

== ENCOUNTER → 2023-11-04 07:45 | Outpatient (REF) | payer OTHER, SELFPAY ==
--- NOTE | ~2023-11-04 | NM_ITS ---
EXAMINATION: BILIARY TRACT IMAGING STUDY WITH CCK CLINICAL INFORMATION: Right upper quadrant pain.. COMPARISON: No previous biliary scan is available for comparison. Abdominal ultrasound dated 06/28/2023 is available for comparison.. TECHNIQUE: Serial gamma scintillation camera images were obtained over the abdomen for a total observation period of 93 minutes following the intravenous administration of 5 mCi Tc-99m Mebrofenin. FINDINGS: There is good concentration of activity in the liver by 5 minutes post injection. Biliary activity is visualized by 8 minutes. The gallbladder is well visualized by 30 minutes. Small bowel is well visualized by 10 minutes. At 63 minutes post radiopharmaceutical injection, a 30-minute infusion of 1.5 micrograms Sincalide was then begun and an additional 30 minutes of images were obtained. There is good gallbladder emptying. At the end of the study there is only mild retention of activity in the gallbladder and essentially complete clearance of activity from the liver. Diffuse bowel activity is also well visualized at this time. The calculated gallbladder ejection fraction is 46% (normal gallbladder ejection fraction is greater than 35%). NM/NM hepatobiliary w pharm IMPRESSION: Visualization of the gallbladder is evidence of a patent cystic duct and strong evidence against the diagnosis of acute cholecystitis. The common bile duct is patent. Gallbladder emptying and ejection fraction are normal. Liver function appears normal.
== END ==
LOC: HO.NUCMED 07:45
PROVIDERS: Visit Provider Nurse Practitioner Family
DX: R10.11 Right upper quadrant pain (principal)
CPT/HCPCS: 78227; A9537; J2805

== ENCOUNTER 2023-12-11 16:21 | Outpatient (REF) | payer OTHER, SELFPAY ==
[2023-12-15 16:09] LABS: Testosterone, Total 547 ng/dL (250-1100)
== END 2023-12-11 16:22 | disposition home or self-care (01) ==
LOC: HO.HHCL 16:21
PROVIDERS: Visit Provider Internal Medicine
DX: R37 Sexual dysfunction, unspecified (principal)
CPT/HCPCS: 36415; 84403

== ENCOUNTER 2023-12-24 16:03 | Outpatient (AMB) | payer OTHER, SELFPAY ==
[2023-12-24 16:13] VITALS: BP 156/82; PULSE 68; O2SAT 98; BMI 28.8
--- NOTE | 2023-12-24 16:13 | MHC.OFFVIS ---
Vital Signs 12/24/23 16:13 Height 5 ft 5 in Weight 172 lb 13.478 oz BMI 28.8 BP 156/82 H Blood Pressure Location Rt brachial Position Sitting Pulse 68 Pulse Source Pulse Oximeter Pulse Oximetry (%) 98 Oxygen Delivery Method Room Air Intake Visit Reasons: Follow up 2 months Intake Note: Reed presents in office today for a scheduled 2 mos FUV. CC: Pt is here to discuss recent NM study. No recent Rx or Lab orders placed. Pt reports that he has been doing well since his last visit. No current concerns or sx. Energy And Conservation Technician Required: Yes Energy And Conservation Technician Services: Energy And Conservation Technician Present Energy And Conservation Technician Name: [id number] Valorie Information Interpreted: non-clinical & clinical Allergies No Known Allergies Allergy (Verified 12/24/23 16:18) HPI HPI Follow up 2 months: Details: LAST VISIT: Postprandial epigastric pain Postprandial abdominal pain in right upper quadrant GERD (gastroesophageal reflux disease) Constipation Plan Patient was encouraged to take senna every day. Avoid dietary triggers. Increase fluid intake and activity to promote bowel motility. Will review HIDA scan. We are ruling out for blocked bile duct, biliary dyskinesia. Patient will follow-up in the office in 2-3 months, sooner on as needed basis. He is agreeable to this plan and verbalizes understanding of instructions. He was given the opportunity to ask questions and all questions answered. ? TODAY'S VISIT Patient is here today for follow-up and to discuss HIDA scan results. Patient reports to be doing well since last visit. Take senna daily and reports that his symptoms have improved. HIDA scan was normal, negative for biliary dyskinesia. Normal functioning gallbladder. Patient denies dyspepsia, dysphagia or odynophagia. Denies melena, hematochezia, unintentional weight loss or ribbon like stools. PFSH Surgical History Hx of colonoscopy Hx of thyroidectomy Review of Systems Const Denies weight gain and Denies weight loss ENT Reports no additional complaints, Denies dysphagia and Denies odynophagia Card Reports no additional complaints Resp Reports no additional complaints GI Denies abdominal pain, Denies belching, Denies melena, Denies bloating, Denies change in bowel habits, Denies constipation, Denies dysphagia, Denies excessive flatus, Denies dyspepsia, Denies heartburn, Denies diarrhea, Denies loose stools, Denies nausea, Denies odynophagia and Denies vomiting Reports no additional complaints Musc Reports no additional complaints Neuro Reports no additional complaints Psych Reports no additional complaints Endo Reports no additional complaints Physical Exam Vital Signs: Last Vital Signs Pulse 68 12/24/23 16:13 BP 156/82 H 12/24/23 16:13 Pulse Ox 98 12/24/23 16:13 Oxygen Delivery Method Room Air 12/24/23 16:13 BMI result Body Mass Index 28.8 Const General: healthy appearing and no acute distress Nutritional Appearance: obese Orientation/consciousness: patient oriented x3 Resp Effort & Inspection: normal respiratory effort, able to speak in complete sentences, no tracheal deviation and symmetric chest movement Auscultation: clear to auscultation bilaterally Cardio Rate: regular rate GI Inspection: Yes normal to inspection and No distended Palpation (GI): Soft to palpation, not firm, nontender and No hepatosplenomegaly present Auscultation: normal bowel sounds General: Yes no CVA tenderness Back/Spine/Pelvis Back: no CVA tenderness Skin General skin exam: elasticity normal, turgor normal and dry skin Neuro General: patient oriented x3 Psych Appearance: grossly normal Mental Status: mental status grossly normal Results Reviewed Results Reviewed: HIDA SCAN FINDINGS: There is good concentration of activity in the liver by 5 minutes post injection. Biliary activity is visualized by 8 minutes. The gallbladder is well visualized by 30 minutes. Small bowel is well visualized by 10 minutes. At 63 minutes post radiopharmaceutical injection, a 30-minute infusion of 1.5 micrograms Sincalide was then begun and an additional 30 minutes of images were obtained. There is good gallbladder emptying. At the end of the study there is only mild retention of activity in the gallbladder and essentially complete clearance of activity from the liver. Diffuse bowel activity is also well visualized at this time. The calculated gallbladder ejection fraction is 46% (normal gallbladder ejection fraction is greater than 35%). NM/NM hepatobiliary w pharm IMPRESSION: Visualization of the gallbladder is evidence of a patent cystic duct and strong evidence against the diagnosis of acute cholecystitis. The common bile duct is patent. Gallbladder emptying and ejection fraction are normal. Liver function appears normal. Assessment & Plan Assessment & Plan (1) Postprandial epigastric pain: Code(s): R10.13 - Epigastric pain (2) Postprandial abdominal pain in right upper quadrant: Code(s): R10.11 - Right upper quadrant pain (3) GERD (gastroesophageal reflux disease): Code(s): K21.9 - Gastro-esophageal reflux disease without esophagitis Qualifiers: Esophagitis presence: without esophagitis Qualified Code(s): K21.9 - Gastro-esophageal reflux disease without esophagitis (4) Constipation: Code(s): K59.00 - Constipation, unspecified Qualifiers: Constipation type: slow transit constipation Qualified Code(s): K59.01 - Slow transit constipation Plan Continue Senokot daily. Increase fluid intake and activity to promote better bowel motility. Patient can continue taking omeprazole daily. Avoid dietary triggers and late night snacking. Staying upright for minimum 3 hours after meals discussed with patient. Follow-up in 6 months, sooner on as needed basis. He is agreeable to this plan and verbalizes understanding of instructions. He was given the opportunity to ask questions and all questions answered. Thank you for allowing me to participate in his care Coding Level of Care Code Est Pt Level 3 (17576) Diagnoses Postprandial epigastric pain R10.13 Postprandial abdominal pain in right upper quadrant R10.11 Gastroesophageal reflux disease without esophagitis K21.9 Esophagitis presence: without esophagitis Slow transit constipation K59.01 Constipation type: slow transit constipation Time Spent (min) 30 Comment 20 minutes spent with patient and additional 10 minutes spent reviewing his records
== END 2023-12-25 11:52 | disposition home or self-care (01) ==
PROVIDERS: PCP Internal Medicine; Visit Provider Nurse Practitioner Family
DX: R10.13 Epigastric pain (principal); R10.11 Right upper quadrant pain; K21.9 Gastro-esophageal reflux disease without esophagitis; K59.01 Slow transit constipation
CPT/HCPCS: 99213

== ENCOUNTER → 2023-12-24 16:03 | Outpatient (BNVA) | payer OTHER, SELFPAY | PROVIDERS: PCP Internal Medicine; Visit Provider Nurse Practitioner Family | DX: K21.9 Gastro-esophageal reflux disease without esophagitis (principal); K59.01 Slow transit constipation; R10.13 Epigastric pain; R10.11 Right upper quadrant pain | CPT/HCPCS: 99212 ==

== ENCOUNTER 2024-07-29 09:46 | Outpatient (REF) | payer OTHER, SELFPAY ==
--- OUTSIDE RECORDS SUMMARY | 2024-07-29 10:26 | XMS_ITS | Encounter Summary ---
Author Organization [employer] Address [address] [facility] [address] [place] [address] Care Team Providers Care Supervisor Wood Crew Name Role Phone Radha Mancini MD Primary Care Provide r Reason for Referral * Consultation (Urgent) - Authorized Specialty Diagnoses / Procedures Referred By Gama momin Referred To Contact Family Medicine Diagnoses Santana Foley MD [address] [place] [address] Phone: tel: fax: Referral ID Status Reason Start Date Expiration Date Visits Requested Visits Authorized [id number] Authorized Specialty Services Required 07/29/2024 07/29/2025 1 1 Reason for Visit * Reason Comments Rash Encounter Details Date Type Department Care Team ([facility] st Contact Info) Description 07/29/2024 9:40 AM EDT Office Visit [facility] [address] [place] [address] [phone] Rash (Primary Dx); Primary hypertension Social History Tobacco Use Types Packs/Day Years Used Date Smoking Tobacco: Never Passive Smoke Exposure: Never Smokeless Tobacco: Never Alcohol Use Standard Drinks/Week Comments Never 0 (1 standard drink = 0.6 oz pur e alcohol) Depression Answer Date Recorded Patient Health Questionnaire-9 Score 0 09/09/2023 Patient Health Questionnaire-9 Score 0 09/09/2023 Last PHQ-9: Questionnaire Data Not on file 0 09/09/2023 Housing Stability Answer Date Recorded What is your housing situation today? I have amarilys ruggiero 07/21/[address] you li ve. Do you have problems with any of the following? None of the above 07/21/2024 Food Insecurity Answer Date Recorded Within the past 12 months, y ou worried that your food would run out before you got money to buy more: Never True 07/21/2024 Within the past 12 months,th e food you bought just didn't last and you didn't have enough money to get more: Never True 08/2024 Transportation Answer Date Recorded In the past 12 months, has l ack of transportation kept you from medical appts, meetings, work or from getting things needed for daily living? No 07/21/2024 Utilities Answer Date Recorded In the past 12 months, has t he [employer] gas, oil or water Accept[employer] threatened to shut off services in your home? No 07/21/2024 Depression Answer Date Recorded Patient Health Questionnaire-2 Score 0 09/09/2023 Internet Access Answer Date Recorded Internet Access Q1 Yes 07/21/2024 Internet Access Q2 Not on file 07/21/2024 Sex and Gender Information Value Date Recorded Sex Assigned at Male 01/15/2022 10:37 AM EDT Legal Sex Male 10:37 AM EDT Gender Identity Male 01/15/2022 10:37 AM EDT Sexual Orientation Straight 01/15/2022 10 :37 AM EDT documented as of this encounter Last Filed Vital Signs Vital Sign Reading Time Taken Comments Blood Pressure 160/78 07/29/2024 9:14 AM EDT Pulse 83 07/29/2024 9:14 AM EDT Temperature 36.4 ??C (97.5 ??F) 07/29/2024 9:14 AM ED T Respiratory Rate 18 07/29/2024 9:14 AM EDT Oxygen Saturation 98% 07/29/2024 9:14 AM EDT Inhaled Oxygen Concentration - - Weight 76.9 kg (169 lb 9.6 oz) 07/29/2024 9:14 A M EDT Height - - Body Mass Index 28.22 07/27/2024 3:52 PM EDT documented in this encounter Plan of Treatment Scheduled Orders Name Type Priority Associated Diagnoses Orde r Schedule Hepatitis B Core Antibody, Total Lab Routine Rash Expected: 07/29/2024 (Approximate), Expires: 07/29/2025 Hepatitis B Surface Antibody, Qualitative Lab Routine Rash Expected: 07/29/2024 (Approximate), Expires: 07/29/2025 Hepatitis B surface antigen, EIA Lab Routine Rash Expected: 07/29/2024 (Approximate), Expires: 07/29/2025 Hepatitis C Antibody with Reflex to HCV, RNA, Quantitative, Real-Time PCR Lab Routine Rash Expected: 07/29/2024 (Approximate), Expires: 07/29/2025 RPR (Monitor) with Reflex to??Titer Lab Routine Rash Expected: 07/29/2024 (Approximate), Expires: 07/29/2025 HIV-1/2 Antigen and Antibodies, Fourth Generation, with Reflexes Lab Routine Rash Expected: 07/29/2024 (Approximate), Expires: 07/29/2025 TSH with Reflex to Free T4 Lab Routine Rash Expected: 07/29/2024 (Approximate), Expires: 07/29/2025 Scheduled Referrals Name Type Priority Associated Diagnoses Orde r Schedule Referral to [facility] Derm Skin Adult Outpatient Referral Urgent Rash Expected: 07/29/2024 (Approximate), Expires: 07/29/2025 documented as of this encounter Visit Diagnoses Diagnosis Rash- Primary Rash and other nonspecific skin eruption Primary hypertension Unspecified essential hypertension documented in this encounter Additional Health Concerns Assessment Noted Time PHQ-9 Depression Total Score: 0 09/09/19 24 3:07 PM EDT documented as of this encounter Care Teams Supervisor Wood Crew Relationship Specialty Start Date End Date Radha Mancini MD [address] [place] [id number] PCP - General Internal Medicine 02/26/23 documented as of this encounter
--- OUTSIDE RECORDS SUMMARY | 2024-07-29 10:26 | XMS_ITS | Encounter Summary ---
Author Organization [employer] Address [address] [facility] 7[address] [place] [address] Care Team Providers Care Reservations Sales Supervisor Name Role Phone Radha Mancini MD Primary Care Provide r Reason for Visit * Reason Onset Date Comments New Patient 10/31/2022 Encounter Details Date Type Department Care Team (Late st Contact Info) Description 10/31/2022 Telephone [facility] [address] [place], [place] [phone] Cosme Norton MD [address] [place], [place] [phone] New Patient Social History Tobacco Use Types Packs/Day Years Used Date Smoking Tobacco: Never Assessed Sex and Gender Information Value Date Recorded Sex Assigned at Male 01/15/2022 10:37 AM EDT Legal Sex Male 10:37 AM EDT Gender Identity Male 01/15/2022 10:37 AM EDT Sexual Orientation Straight 01/15/2022 10 :37 AM EDT documented as of this encounter Miscellaneous Notes * Telephone Encounter - Brayan Mathis - 10/31/2022 4:42 PM EDT Pt has been transfer over to wait list for [facility] 10/31/2022 * Telephone Encounter - Brayan Mathis - 10/31/2022 12:51 PM EDT Tc to pt, to start process of becoming a patient with facility, informed patient insurance is coming inactive. To please call insurance company to proceed with process. documented in this encounter Plan of Treatment Not on file documented as of this encounter Visit Diagnoses Not on filedocumented in this encounter Care Teams Reservations Sales Supervisor Relationship Specialty Start Date End Date Radha Mancini MD [address] [place] [id number] PCP - General Internal Medicine 02/26/23 documented as of this encounter
--- OUTSIDE RECORDS SUMMARY | 2024-07-29 10:26 | XMS_ITS | Clinical Summary ---
Author Organization [employer] Address [address] [facility] [address] [place] [address] Care Team Providers Care Perinatal Director Name Role Phone Radha Mancini MD Primary Care Provide r Allergies No known active allergies Medications Blood Glucose Monitoring Suppl ([employer] [place] [employer]ite) w/Device kitIndications: Newly diagnosed diabetes ([facility]) Use to test blood sugar 2 times daily 1 kit 03/26/19 24 Active Lancets miscIndications :Newly diagnosed diabetes ([facility]) Use to test blood sugar 2 times daily 100 each 03/26/19 24 Active Alcohol Swabs 70 % padsIndications :Newly diagnosed diabetes ([facility]) Use to test blood sugar 2 times daily 100 each 03/26/19 24 Active simethicone (Mylicon,Gas-X) 180 MG capsuleIndicati ons:Heartburn Take 1 capsule (180 mg) by mouth every 8 (eight) hours if needed for flatulence. 90 capsule 1 06/28/19 24 Active Alum Hydroxide-Mag Carbonate (Gaviscon Extra Strength) 508-475 MG/10ML suspensionIndic ations:RUQ abdominal pain Take 10 mL by mouth before breakfast, before lunch, and before evening meal. 355 mL 1 07/02/19 24 Active cyclobenzaprine (Flexeril) 10 MG tabletIndicatio ns:Muscle spasm Take 1 tablet (10 mg) by mouth at bedtime. 30 tablet 07/02/19 24 Active empagliflozin (Jardiance) 10 MGIndications:T ype 2 diabetes mellitus with hyperglycemia, without long-term current use of insulin ([facility]) Take 1 tablet (10 mg) by mouth in the morning. 30 tablet 11 07/02/19 24 Active omeprazole (PriLOSEC) [address] capsuleIndicati ons:RUQ abdominal pain Take 1 capsule (40 mg) by mouth before breakfast. Do not crush or chew. 30 capsule 07/03/19 24 Active amLODIPine (Norvasc) 5 MG tabletIndicatio ns:Primary hypertension Take 1 tablet (5 mg) by mouth Once per day. 30 tablet 11 09/09/19 24 025 Active sildenafil (Viagra) 25 MG tabletIndicatio ns:Sexual dysfunction Take 1 tablet (25 mg) by mouth if needed each day for erectile dysfunction. 15 tablet 12/11/19 24 Active triamcinolone (Kenalog) 0.1 % creamIndication s:Contact dermatitis, unspecified contact dermatitis type, unspecified trigger Apply topically if needed in the morning and at bedtime (pain and swelling). 30 g 2 04/28/19 25 Active atorvastatin (Lipitor) 40 MG tabletIndicatio ns:Primary hypertension Take 1 tablet (40 mg) by mouth Once per day. 30 tablet 07/28/19 25 026 Active losartan-hydroC HLOROthiazide (Hyzaar) 50-12.5 MG tabletIndicatio ns:Primary hypertension Take 1 tablet by mouth Once per day. 30 tablet 07/28/19 25 026 Active amoxicillin (Amoxil) 875 MG tabletIndicatio ns:Cellulitis of face Take 1 tablet (875 mg) by mouth 2 times daily for 10 days. 20 tablet 07/28/19 25 025 Active doxycycline (Vibra-Tabs) 100 MG tabletIndicatio ns:Cellulitis of face Take 1 tablet (100 mg) by mouth 2 times daily for 10 days. Take with a full glass of water and do not lie down for at least 30 minutes after. 20 tablet 07/28/19 25 025 Active triamcinolone (Kenalog) 0.1 % creamIndication s:Contact dermatitis, unspecified contact dermatitis type, unspecified trigger Apply topically if needed in the morning and at bedtime (pain and swelling). 30 g 3 07/28/19 25 Active ibuprofen 800 MG tabletIndicatio ns:Cellulitis of face Take 1 tablet (800 mg) by mouth every 8 (eight) hours if needed for mild pain for up to 10 days. 20 tablet 07/28/19 25 025 Active predniSONE (Deltasone) 20 MG tablet Take 1 tablet (20 mg) by mouth Once per day for 5 days. 5 tablet 07/30/19 25 025 Active hydrocortisone 2.5 % cream Apply topically if needed in the morning and at bedtime for rash. 30 g 1 07/30/19 25 Active miconazole (Micatin) 2 % cream Apply topically if needed in the morning and at bedtime (rash). Apply to affected area 2 times daily prn 56.7 g 07/30/19 25 Active losartan-hydroC HLOROthiazide (Hyzaar) 50-12.5 MG tabletIndicatio ns:Primary hypertension Take 1 tablet by mouth in the morning. 30 tablet 07/02/19 24 025 Discontinued(Re order (will not trigger notification to Pharmacy)) atorvastatin (Lipitor) 40 MG tabletIndicatio ns:Primary hypertension Take 1 tablet (40 mg) by mouth in the morning. 30 tablet 07/02/19 24 025 Discontinued(Re order (will not trigger notification to Pharmacy)) clotrimazole-be tamethasone (Lotrisone) cream Apply topically Once per day for 14 days. 30 g 06/17/19 25 025 miconazole (Micatin) 2 % cream Apply topically at bedtime for 14 days. 30 g 06/17/19 25 025 Active Problems Problem Noted Date Diagnosed Date Cellulitis of face 07/27/2024 Assessment & Plan (07/27/2024 5:44 PM EDT): If symptoms persist or worse report back or go to the emergency room Tinea corporis 06/16/2024 Assessment & Plan (06/16/2024 4:14 PM EDT): On trunk and UE. Use ketoconazole cream nightly and Lotrisone cream in the morning to decrease pruritus. Advised to clean cloth in bed linings with hot water Wash hands and fingernails after cream application. Contact dermatitis 04/28/2024 Assessment & Plan (07/27/2024 5:46 PM EDT): Apply cream BID on affected area Avoid offending agents Use gloves Assessment & Plan (04/28/2024 5:15 PM EST): It was advised to avoid triggering agent I advised to use petroleum jelly on his hands I prescribed for patient triamcinolone 0.1% cream twice a day for no more than 2 weeks Sexual dysfunction 12/11/2023 RUQ abdominal pain 07/02/2023 Assessment & Plan (07/03/2023 1:54 PM EDT): It is possibly patient has gastritis+ muscle spasm I will refer him to GI I advise patient to avoid NSAIDs, spicy and acid food, I advise to eat at the same time every day, I advise to elevate the head of the bed and take medications as prescribe I increase omeprazole to 40mg daily I refilled his Gavicon (patient did said it helped) Muscle spasm 07/02/2023 Assessment & Plan (07/03/2023 1:55 PM EDT): Apply heat on affected area Flexeril prescribed, patient is aware of side effect somnolence Type 2 diabetes mellitus wit h hyperglycemia, without long-term current use of insulin 06/12/2023 Assessment & Plan (07/27/2024 5:44 PM EDT): Diabetes is: controlled - Lab Results Component Value Date HGBA1C 6.1 (A) 04/28/2024 HGBA1C 6.1 (A) 09/09/2023 HGBA1C 6.9 (A) 06/12/2023 - Lab Results Component Value Date MICROALBUR 7.0 08/14/2023 CREATININE 1.08 02/26/2023 -Changes: none - Diabetic eye exam:up to date - Diabetic foot exam:pending - Continue lifestyle modifications - Continue current medications - Follow up: 3 months Assessment & Plan (04/28/2024 5:14 PM EST): Diabetes is: controlled - Lab Results Component Value Date HGBA1C 6.1 (A) 04/28/2024 HGBA1C 6.1 (A) 09/09/2023 HGBA1C 6.9 (A) 06/12/2023 - Lab Results Component Value Date MICROALBUR 7.0 08/14/2023 CREATININE 1.08 02/26/2023 -Changes: none - Diabetic eye exam: Up-to-date - Diabetic foot exam: Pending - Continue lifestyle modifications - Continue current medications - Follow up: 3 months Assessment & Plan (12/11/2023 5:07 PM EDT): Diabetes is: controlled - Lab Results Component Value Date HGBA1C 6.1 (A) 09/09/2023 HGBA1C 6.9 (A) 06/12/2023 HGBA1C 6.7 (H) 02/26/2023 - Lab Results Component Value Date MICROALBUR 7.0 08/14/2023 CREATININE 1.08 02/26/2023 -Changes: none - Diabetic eye exam:up to date - Diabetic foot exam:pending - Continue lifestyle modifications - Continue current medications - Follow up: 3 months Patient declines immunizations Assessment & Plan (09/09/2023 3:27 PM EDT): Diabetes is: controlled - Lab Results Component Value Date HGBA1C 6.1 (A) 09/09/2023 HGBA1C 6.9 (A) 06/12/2023 HGBA1C 6.7 (H) 02/26/2023 - Lab Results Component Value Date MICROALBUR 7.0 08/14/2023 CREATININE 1.08 02/26/2023 -Changes: none - Diabetic eye exam:up to date - Diabetic foot exam:pending - Continue lifestyle modifications - Continue current medications - Follow up: 3 months Assessment & Plan (07/03/2023 1:51 PM EDT): Diabetes is: almost at goal - Lab Results Component Value Date HGBA1C 6.9 (A) 06/12/2023 HGBA1C 6.7 (H) 02/26/2023 - Lab Results Component Value Date CREATININE 1.08 02/26/2023 -Changes: None - Diabetic eye exam:up to date - Diabetic foot exam:pending - Continue lifestyle modifications - Continue current medications - Follow up: 3 months Assessment & Plan (06/12/2023 9:48 AM EDT): Patient is not taking his metformin he states he has being having anal itching when ever he takes it, I will put him today on jardiance Newly diagnosed diabetes 03/26/2023 Assessment & Plan (03/28/2023 2:16 PM EST): - Lab Results Component Value Date HGBA1C 6.7 (H) 02/26/2023 - Lab Results Component Value Date CREATININE 1.08 02/26/2023 - Diabetic eye exam:referral done today - Diabetic foot exam:pending - Continue lifestyle modifications -metfomrin 500mg BID Colon cancer screening 03/26/2023 Primary hypertension 02/26/2023 Assessment & Plan (07/27/2024 5:43 PM EDT): -I advised: - Aerobic exercise to reduce BP. Initial goal of 30 min walk 3-5x/week. Increase as tolerated. - low-sodium diet (goal: <2g/day) and heart healthy diet such as DASH to reduce BP and prevent ASCVD. - Home BP monitoring 1-2 x day with goal of <140/90. - Seek immediate medical attention for chest pain, palpitations, SOB, syncope, or sudden changes in mental status. - Do not change or discontinue current prescriptions without first consulting health care provider Assessment & Plan (06/16/2024 4:16 PM EDT): Uncontrolled today. Advised to take medications daily and follow-up BP with PCP as scheduled Assessment & Plan (04/28/2024 5:16 PM EST): It was advised low-sodium diet and weight reduction Today blood pressure is not controlled, I asked for patient to look BP at home and come back in 2 weeks for nurse visit, plan is if blood pressure is not at goal to increase amlodipine to 10 mg Assessment & Plan (12/11/2023 5:06 PM EDT): - Aerobic exercise to reduce BP. Initial goal of 30 min walk 3-5x/week. Increase as tolerated. - low-sodium diet (goal: <2g/day) and heart healthy diet such as DASH to reduce BP and prevent ASCVD. - Home BP monitoring 1-2 x day with goal of <140/90. - Seek immediate medical attention for chest pain, palpitations, SOB, syncope, or sudden changes in mental status. - Do not change or discontinue current prescriptions without first consulting health care provider Assessment & Plan (09/09/2023 4:05 PM EDT): Uncontrolled I added today amlodipine 5mg, c/w losartan/hydrochlorothiazide 50/12.5mg I advise low Na diet RTC 2 weeks with nurse with log plan is if B no at goal to increase amlodipine to 10mg daily Assessment & Plan (07/03/2023 1:56 PM EDT): Patient did not took his blood pressure medication I advise low Na diet and do not miss any dose of his medications Assessment & Plan (06/12/2023 9:47 AM EDT): -Patient is not taking amlodipine and he run out of losartan , its difficult for him to be compliant with medications I decided to put him on losartan/hydrochlorothiazide combo - Aerobic exercise to reduce BP. Initial goal of 30 min walk 3-5x/week. Increase as tolerated. - low-sodium diet (goal: <2g/day) and heart healthy diet such as DASH to reduce BP and prevent ASCVD. - Home BP monitoring 1-2 x day with goal of <140/90. - Seek immediate medical attention for chest pain, palpitations, SOB, syncope, or sudden changes in mental status. - Do not change or discontinue current prescriptions without first consulting health care provider Assessment & Plan (03/28/2023 2:15 PM EST): Maintenance: BMP: up to date Lipid Panel: up to date ASCVD Risk: I started him on atorvastatin 40mg daily calculated risk 23% - Aerobic exercise to reduce BP. Initial goal of 30 min walk 3-5x/week. Increase as tolerated. - low-sodium diet (goal: <2g/day) and heart healthy diet such as DASH to reduce BP and prevent ASCVD. - Home BP monitoring 1-2 x day with goal of <140/90. - Seek immediate medical attention for chest pain, palpitations, SOB, syncope, or sudden changes in mental status. - Do not change or discontinue current prescriptions without first consulting health care provider Assessment & Plan (02/26/2023 10:48 AM EST): Maintenance: BMP: ordered Lipid Panel: ordered ASCVD Risk: Calculate pending updated labs - Aerobic exercise to reduce BP. Initial goal of 30 min walk 3-5x/week. Increase as tolerated. - low-sodium diet (goal: <2g/day) and heart healthy diet such as DASH to reduce BP and prevent ASCVD. - Home BP monitoring 1-2 x day with goal of <140/90. - Seek immediate medical attention for chest pain, palpitations, SOB, syncope, or sudden changes in mental status. - Do not change or discontinue current prescriptions without first consulting health care provider Heartburn 02/26/2023 Assessment & Plan (02/26/2023 10:48 AM EST): I advise patient to avoid NSAIDs, spicy and acid food, I advise to eat at the same time every day, I advise to elevate the head of the bed and take medications as prescribe Encounters Date Type Department Care Team Description 07/29/2024 9:40 AM EDT Office Visit [facility] [address] [place] [phone] Rash (Primary Dx); Primary hypertension 07/27/2024 3:30 PM EDT Office Visit [facility] [address] [place] [phone] Radha Mancini MD Primary hypertension; Type 2 diabetes mellitus with hyperglycemia, without long-term current use of insulin ([facility]); Cellulitis of face; Contact dermatitis, unspecified contact dermatitis type, unspecified trigger 07/27/2024 Travel 07/24/2024 Telephone [facility] [address] [place] [phone] Radha Mancini MD Chart Prep 07/21/2024 Patient Outreach [facility] [address] [place] [address] Radha Mancini MD Pre-visit Planning (SDOH negative. Tobacco screening negative. ) 06/16/2024 4:00 PM EDT Office Visit [facility] [address] [place] [address] Karin Smith MD Tinea corporis (Primary Dx); Primary hypertension from Last 3 Months Social History Tobacco Use Types Packs/Day Years Used Date Smoking Tobacco: Never Passive Smoke Exposure: Never Smokeless Tobacco: Never Tobacco Cessation:Counseling Given: Not Answered Alcohol Use Standard Drinks/Week Comments Never 0 [...] the past 12 months, has t he electric, gas, oil or water company threatened to shut off services in your [...] Orientation Straight 01/15/2022 10 :37 AM EDT Last Filed Vital Signs Vital Sign Reading [...] oz) 07/29/2024 9:14 A M EDT Height 165.1 cm (5' 5 ) 07/27/2024 3:52 PM EDT Body Mass Index 28.22 07/27/2024 3:52 PM EDT Plan of Treatment Health Maintenance Due Date Last Done Comments CT Colonography 1963 Colonoscopy 1963 FIT 1963 FOBT 1963 Sigmoidoscopy 1963 Diabetes: Foot Exam 06/09/1973 DTaP/Tdap/Td Vaccines (1 - Tdap) 06/09/1982 Pneumococcal Vaccine: 50+ Years (1 of 2 - PCV) 06/09/1982 Zoster Vaccines (1 of 2) 06/09/2013 COVID-19 Vaccine (3 - season) 2023 03/28/2021, 03/06/2021 Influenza Vaccine (#1) 2023 Lipid Panel 02/27/2024 02/26/2023 Diabetes: Urine Protein Screening 08/13/2024 08/14/2023 Alcohol/Substance Use Screening 09/08/2024 09/09/2023 Depression Screening 09/08/2024 09/09/2023, 09/09/19 Diabetes: Hemoglobin A1C 10/26/2024 025, 09/09/2023, 06/12/2023, Additional history exists Eye Exam 05/29/2025 05/30/2023, 05/16, 05/30/2023, Additional history exists SDOH Screening 07/21/2025 07/21/2024 Tobacco Screening 07/29/2025 07/29/2024 Colorectal Cancer Screening 04/03/2026 FIT DNA/Cologuard 04/03/2026 04/03/2023 RSV Patients and Patients Aged 60 years or older (1 - 1-dose 75+ series) 06/09/2038 HIV Screening Completed 02/26/2023 Hepatitis C Screening Completed 02/26/2023 HIB Vaccines Aged Out No longer eligi ble based on patient's age to complete this topic HPV Vaccines Aged Out No longer eligi ble based on patient's age to complete this topic Hepatitis A Vaccines Aged Out No long er eligible based on patient's age to complete this topic Hepatitis B Vaccines Aged Out No long er eligible based on patient's age to complete this topic IPV Vaccines Aged Out No longer eligi ble based on patient's age to complete this topic Meningococcal B Vaccine Aged Out No l onger eligible based on patient's age to complete this topic Meningococcal Vaccine Aged Out No juancho lavon eligible based on patient's age to complete this topic RSV under 20 months Aged Out No longe r eligible based on patient's age to complete this topic Rotavirus Vaccines Aged Out No longer eligible based on patient's age to complete this topic Procedures Procedure Name Priority Date/Time Associated Diagnosis Comments POCT GLYCATED HEMOGLOBIN, TOTAL Routine 04/28/2024 3:09 PM EST Type 2 diabetes mellitus with hyperglycemia, without long-term current use of insulin (CMS/HCC) ALBUMIN, RANDOM URINE W/CREATININE Routine 08/14/2023 2:45 PM EDT Newly diagnosed diabetes (CMS/HCC) LAB COLOGUARD?? COLON CANCER SCREEN Routine 04/03/2023 8:00 AM EST Colon cancer screening HEPATITIS C AB W/REFL TO HCV RNA, QN, PCR Routine 02/26/2023 10:53 AM EST Primary hypertension HIV 1/2 ANTIGEN/ANTIBODY, FOURTH GENERATION W/RFL Routine 02/26/2023 10:53 AM EST Primary hypertension LIPID PANEL, STANDARD Routine 02/26/2023 10:53 AM EST Primary hypertension from Last 3 Months or Most Recently Relevant to Health Maintenance Results * (ABNORMAL) POCT HGB A1C (04/28/2024 3:09 PM EST) Hemoglobin A1C 6.1(A) 4.0 - 6.0 % QC Media Lot # [id number] Lot# Expiration Date Blood 04/28/2024 3:09 PM EST Radha Crocker MD POINT OF CARE TEST EN TER/EDIT ORDERABLES Final Result * Albumin, Random Urine W/Creatinine (08/14/2023 2:45 PM EDT) Creatinine, Urine 142.62 mg/dL [facility] Microalbumin Urine 7.0 mg/L [facility] Microalbum Creatinine Ratio Ur 4.9 <30 ug/mg cr [facility] Comment:Albumin/Creatinine R atio Reference Ranges: Normal: < 30 ug/mg creatinine Microalbuminuria: 30 - 300 ug/mg creatinineClinical Albuminuria: > 300 ug/mg creatinine Urine (Urine, Random) 08/14/2023 2:45 PM EDT 08/14/2023 3:08 PM EDT Radha Crocker MD LAB URINE ORDERABLES Final Result [facility] [address] [place] [phone] * Cologuard?? colon cancer screening (04/03/2023 8:00 AM EST) Cologuard Result Negative Negative 04/13/19 1:13 AM EST [employer] (CLIA #:[id number]) Comment: NEGATIVE TEST RESULT. A negative Cologuard result indicates a low likelihood that a colorectal cancer (CRC) or advanced adenoma (adenomatous polyps with more advanced pre-malignant features) ??is present. The chance that a person with a negative Cologuard test has a colorectal cancer is less than 1 in 1500 (negative predictive value >99.9%) or has an ??advanced adenoma is less than ??5.3% (negative predictive value 94.7%). These data are based on a prospective cross-sectional study of 10,000 individuals at average risk for colorectal cancer who were screened with both Cologuard and colonoscopy. (Keyur Quintanilla et al, N Engl J Med 2014;370(14):1286- 1297) The normal value (reference range) for this assay is negative. COLOGUARD RE-SCREENING RECOMMENDATION: Periodic colorectal cancer screening is an important part of preventive healthcare for asymptomatic individuals at average risk for colorectal cancer. ??Following a negative Cologuard result, the [place] [employer] and U.S. Multi-Society Task Force screening guidelines recommend a Cologuard re-screening interval of 3 years. References: [place] [employer] Guideline for Colorectal Cancer Screening: https://www.cancer.org/cancer/uzgde-wugntt-idunfp/afsxjdpry-rolblktkh-xuacwun/ac s-rec ommendations.html.; Mitul DK, Shashi LIND, Naina GarciaK, Colorectal Cancer Screening: Recommendations for Physicians and Patients from the U.S. Multi-Society Task Force on Colorectal Cancer Screening , Am J Gastroenterology 2017; 112:4740-3354. TEST DESCRIPTION: Composite algorithmic analysis of stool DNA-biomarkers with hemoglobin immunoassay. ?? Quantitative values of individual biomarkers are not reportable and are not associated with individual biomarker result reference ranges. Cologuard is intended for colorectal cancer screening of adults of either sex, 45 years or older, who are at average-risk for colorectal cancer (CRC). Cologuard has been approved for use by the U.S. FDA. The performance of Cologuard was established in a cross sectional study of average-risk adults aged 50-84. Cologuard performance in patients ages 45 to 49 years was estimated by sub-group analysis of near-age groups. Colonoscopies performed for a positive result may find as the most clinically significant lesion: colorectal cancer [4.0%], advanced adenoma (including sessile serrated polyps greater than or equal to 1cm diameter) [20%] or non- advanced adenoma [31%]; or no colorectal neoplasia [45%]. These estimates are derived from a prospective cross-sectional screening study of 10,000 individuals at average risk for colorectal cancer who were screened with both Cologuard and colonoscopy. (Keyur Camacho al, N Engl J Med 2014;370(14):0730-7458.) Cologuard may produce a false negative or false positive result (no colorectal cancer or precancerous polyp present at colonoscopy follow up). A negative Cologuard test result does not guarantee the absence of CRC or advanced adenoma (pre-cancer). The current Cologuard screening interval is every 3 years. ([place] [employer] and U.S. Multi-Society Task Force). Cologuard performance data in a 10,000 patient pivotal study using colonoscopy as the reference method can be accessed at the following location: www.[employer]/results. Additional description of the Cologuard test process, warnings and precautions can be found at www.cologBESOSrd.Weele. Stool specimen (specimen) 04/03/2023 8:00 AM EST 04/04/2023 3:50 PM EST us Radha Crocker MD LAB MOLECULAR DIAGNOS TICS ORDERABLES Final Result Performing Organization Address City/[facility]/ZIP Co de Phone Number [facility] (CLIA #:[id number]) [place] [address], * Hepatitis C Antibody with Reflex to HCV, RNA, Quantitative, Real-Time PCR (02/26/2023 10:53 AM EST) Hepatitis C Antibody Nonreactive Nonreactive [facility] Comment:Antibodies to HCV no t detected; does not exclude early acuteHCV infection. Blood Venous blood specimen / Unknown 02/26/2023 10:53 AM EST 02/26/2023 1:33 PM EST Radha Crocker MD LAB BLOOD ORDERABLES Final Result Performing Organization Address [facility]/ZIP Co de Phone Number [facility] [address] [place] [phone] * HIV-1/2 Antigen and Antibodies, Fourth Generation, with Reflexes (02/26/2023 10:53 AM EST) HIV AB/AG Nonreactive Nonreactive [facility] Comment:HIV-1 p24 Ag and/or HIV-1/HIV-2 Ab not detected.A test result that is nonreactive does not exclude thepossibility of exposure to or infection with HIV-1 and/orHIV-2. Nonreactive results in this assay for individualswith prior exposure to HIV-1 and/or HIV-2 may be due toantigen and antibody levels that are below the limit ofdetection of this assay.The [employer] HIV Ag/Ab Combo assay result andsupplemental assay results should be interpreted inconjunction with the patient's clinical presentation,history and other laboratory results. If the results areinconsistent with clinical evidence, additional testing issuggested to confirm the result. Blood Venous blood specimen / Unknown 02/26/2023 10:53 AM EST 02/26/2023 1:33 PM EST us Radha Crocker MD LAB BLOOD ORDERABLES Final Result [facility] [address] [place] [phone] * (ABNORMAL) Lipid Panel, Standard (02/26/2023 10:53 AM EST) Triglycerides 86 <150 mg/dL [facility] Comment:Desirable Triglyceri de: less than 150 mg/dLBorderline High Triglyceride 150-199 mg/dLHigh Triglyceride: 200-499 mg/dLVery High Triglyceride: greater than or equal to 5OO mg/dL Cholesterol 186 <200 mg/dL [facility] Comment:Desirable Cholestero l: less than 200 mg/dLBorderline High Cholesterol: 200-239 mg/dLHigh Cholesterol: greater than 239 mg/dL LDL Cholesterol Calculated 124(H) <100 mg/dL [facility] Comment:Desirable LDL: less than 100 mg/dLNear Optimal/Above Optimal LDL: 110- 129 mg/dLBorderline High LDL: 130-159 mg/dLHigh LDL: 160-189 mg/dLVery High LDL: greater than or equal to 190 mg/dL HDL Cholesterol 45 >40 mg/dL [facility] Comment:Desirable HDL: great er than 40 mg/dL Note: This HDL assay may give artificially low results in patients with liver disease. Blood Venous blood specimen / Unknown 02/26/2023 10:53 AM EST 02/26/2023 1:33 PM EST us Radha Crocker MD LAB BLOOD ORDERABLES Final Result [facility] [address] [place] [phone] from Last 3 Months or Most Recently Relevant to Health Maintenance Insurance [employer] Care Teams Perinatal Director Relationship Specialty Start Date End Date Radha Mancini MD [address] [place] [id number] PCP - General Internal Medicine 02/26/23
--- OUTSIDE RECORDS SUMMARY | 2024-07-29 10:26 | XMS_ITS | Encounter Summary ---
Author Organization [employer] Address [address] [place] [address] Care Team Providers Care Ruffler Name Role Phone Radha Mancini MD Primary Care Provide r Encounter Details Date Type Department Care Team ([facility] st Contact Info) Description 07/27/2024 3:30 PM EDT Office Visit [facility] [address] [place], [place] [phone] Radha Mancini MD [address] [place], [place] [phone] Primary hypertension; Type 2 diabetes mellitus with hyperglycemia, without long-term current use of insulin ([facility]); Cellulitis of face; Contact dermatitis, unspecified contact dermatitis type, unspecified trigger Social History Tobacco Use Types Packs/Day Years [...] Sign Reading Time Taken Comments Blood Pressure 142/82 07/27/2024 4:07 PM EDT Pulse 76 07/27/2024 3:52 PM EDT Temperature 36.3 ??C (97.3 ??F) 07/27/2024 3:52 PM ED T Respiratory Rate 19 07/27/2024 3:52 PM EDT Oxygen Saturation - - Inhaled Oxygen Concentration - - Weight 77.6 kg (171 lb) 07/27/2024 3:52 PM EDT Height 165.1 cm (5' 5 ) 07/27/2024 3:52 PM EDT Body Mass Index 28.46 07/27/2024 3:52 PM EDT documented in this encounter Functional Status * Over the last 2 weeks, how often have you been bothered by any of the following problems? Question Answer Date of Assessment Author Feeling nervous, anxious, or on edge 1 07/27/2024 4:21 PM EDT Cecily Sanchez MA Not being able to stop or co ntrol worrying 2 07/27/2024 4:21 PM EDT Cecily Sanchez MA Worrying too much about diff erent things 1 07/27/2024 4:21 PM EDT Cecily Sanchez MA Trouble relaxing 0 07/27/2024 4:21 PM EDT Cecily Ge MA Being so restless that it is hard to sit still 0 07/27/2024 4:21 PM EDT Cecily Sanchez MA Becoming easily annoyed or irritable 0 07/27/2024 4:21 PM EDT Cecily Sanchez MA Feeling afraid as if somethi ng awful might happen 0 07/27/2024 4:21 PM EDT Cecily Sanchez MA LOY-7 Total Score 4 07/27/2024 4:21 PM EDT Cecily Sanchez MA documented as of this encounter Progress Notes * Radha Crocker MD - 07/27/2024 3:30 PM EDT Images from the original note were not included. SUBJECTIVE: Reed Johnson is a 59 y.o. year old male who presents for Chronic Disease Management . Acute Concerns: Patient reports he had a pimple on his face and to try to make it better he applied garlic on it, since then it has being worse more tenderness, redness and warm sensation , he reports he is in a lotof pain Patient also reports dry itchy skin on his right hand Social History Social History Narrative Not on file Patient Active Problem List Diagnosis Primary hypertension Heartburn Newly diagnosed diabetes ([facility]) Colon cancer screening Type 2 diabetes mellitus with hyperglycemia, without long-term current use of insulin ([facility]) RUQ abdominal pain Muscle spasm Sexual dysfunction Contact dermatitis Tinea corporis Cellulitis of face No family history on file. Review of Systems Constitutional: Negative. HENT: Negative. Respiratory: Negative. Cardiovascular: Negative. Skin: Pain and swelling on her right side of his face OBJECTIVE: Vitals: 07/27/24 1552 07/27/24 1607 BP: (!) 160/80 (!) 142/82 BP Location: Left arm Left arm Patient Position: Sitting BP Cuff Size: Adult Pulse: 76 Resp: 19 Temp: 97.3 ??F (36.3 ??C) TempSrc: Oral Weight: 171 lb (77.6 kg) Height: 5' 5 (1.651 m) Physical Exam Constitutional: Appearance: Normal appearance. HENT: Head: Comments: Erythema, swelling, warm sensation Cardiovascular: Rate and Rhythm: Normal rate and regular rhythm. Pulmonary: Effort: Pulmonary effort is normal. Breath sounds: Normal breath sounds. Abdominal: General: Abdomen is flat. Palpations: Abdomen is soft. Musculoskeletal: Right lower leg: No edema. Left lower leg: No edema. Neurological: Mental Status: He is alert. Follow Up: No follow-ups on file. Current Outpatient Medications on File Prior to Visit Medication Sig Dispense Refill Alcohol Swabs 70 % pads Use to test blood sugar 2 times daily 100 each 0 Alum Hydroxide-Mag Carbonate (Gaviscon Extra Strength) 508-475 MG/10ML suspension Take 10 mL by mouth before breakfast, before lunch, and before evening meal. 355 mL 1 amLODIPine (Norvasc) 5 MG tablet Take 1 tablet (5 mg) by mouth Once per day. 30 tablet 11 Blood Glucose Monitoring Suppl ([employer] Lite) w/Device kit Use to test blood sugar 2 times daily 1 kit 0 cyclobenzaprine (Flexeril) 10 MG tablet Take 1 tablet (10 mg) by mouth at bedtime. 30 tablet 0 empagliflozin (Jardiance) 10 MG Take 1 tablet (10 mg) by mouth in the morning. 30 tablet 11 Lancets misc Use to test blood sugar 2 times daily 100 each 0 omeprazole (PriLOSEC) [address] capsule Take 1 capsule (40 mg) by mouth before breakfast. Do not crush or chew. 30 capsule 11 sildenafil (Viagra) 25 MG tablet Take 1 tablet (25 mg) by mouth if needed each day for erectile dysfunction. 15 tablet 0 simethicone (Mylicon,Gas-X) 180 MG capsule Take 1 capsule (180 mg) by mouth every 8 (eight) hours if needed for flatulence. 90 capsule 1 triamcinolone (Kenalog) 0.1 % cream Apply topically if needed in the morning and at bedtime (pain and swelling). 30 g 2 [DISCONTINUED] atorvastatin (Lipitor) 40 MG tablet Take 1 tablet (40 mg) by mouth in the morning. 30 tablet 11 [DISCONTINUED] losartan-hydroCHLOROthiazide (Hyzaar) 50-12.5 MG tablet Take 1 tablet by mouth in the morning. 30 tablet 11 No current facility-administered medications on file prior to visit. Problem List Items Addressed This Visit Primary hypertension -I advised: - Aerobic exercise to reduce BP. Initial goal of 30 min walk 3-5x/week. Increase as tolerated. - low-sodium diet (goal: <2g/day) and heart healthy diet such as DASH to reduce BP and prevent ASCVD. - Home BP monitoring 1-2 x day with goal of <140/90. - Seek immediate medical attention for chest pain, palpitations, SOB, syncope, or sudden changes inmental status. - Do not change or discontinue current prescriptions without first consulting health care provider Relevant Medications atorvastatin (Lipitor) 40 MG tablet losartan-hydroCHLOROthiazide (Hyzaar) 50-12.5 MG tablet Type 2 diabetes mellitus with hyperglycemia, without long-term current use of insulin ([facility]) Diabetes is: controlled - Lab Results Component Value Date HGBA1C 6.1 (A) 04/28/2024 HGBA1C 6.1 (A) 09/09/2023 HGBA1C 6.9 (A) 06/12/2023 - Lab Results Component Value Date MICROALBUR 7.0 08/14/2023 CREATININE 1.08 02/26/2023 -Changes: none - Diabetic eye exam:up to date - Diabetic foot exam:pending - Continue lifestyle modifications - Continue current medications - Follow up: 3 months Cellulitis of face If symptoms persist or worse report back or go to the emergency room Relevant Medications amoxicillin (Amoxil) 875 MG tablet doxycycline (Vibra-Tabs) 100 MG tablet ibuprofen 800 MG tablet Contact dermatitis Apply cream BID on affected area Avoid offending agents Use gloves Relevant Medications triamcinolone (Kenalog) 0.1 % cream documented in this encounter Miscellaneous Notes * Assessment & Plan Note - Radha Crocker MD - 07/27/2024 5:46 PM EDT Associated Problem(s): Contact dermatitis Apply cream BID on affected area Avoid offending agents Use gloves * Assessment & Plan Note - Radha Crocker MD - 07/27/2024 5:44 PM EDT Associated Problem(s): Cellulitis of face If symptoms persist or worse report back or go to the emergency room * Assessment & Plan Note - Radha Crocker MD - 07/27/2024 5:44 PM EDT Associated Problem(s): Type 2 diabetes mellitus with hyperglycemia, without long-term current use of insulin ([facility]) Diabetes is: controlled - Lab Results Component Value Date HGBA1C 6.1 (A) 04/28/2024 HGBA1C 6.1 (A) 09/09/2023 HGBA1C 6.9 (A) 06/12/2023 - Lab Results Component Value Date MICROALBUR 7.0 08/14/2023 CREATININE 1.08 02/26/2023 -Changes: none - Diabetic eye exam:up to date - Diabetic foot exam:pending - Continue lifestyle modifications - Continue current medications - Follow up: 3 months * Assessment & Plan Note - Radha Crocker MD - 07/27/2024 5:43 PM EDT Associated Problem(s): Primary hypertension -I advised: - Aerobic exercise to reduce BP. Initial goal of 30 min walk 3-5x/week. Increase as tolerated. - low-sodium diet (goal: <2g/day) and heart healthy diet such as DASH to reduce BP and prevent ASCVD. - Home BP monitoring 1-2 x day with goal of <140/90. - Seek immediate medical attention for chest pain, palpitations, SOB, syncope, or sudden changes inmental status. - Do not change or discontinue current prescriptions without first consulting health care provider documented in this encounter Plan of Treatment Not on file documented as of this encounter Visit Diagnoses Diagnosis Primary hypertension Unspecified essential hypertension Type 2 diabetes mellitus with hyperglycemia, without long-term current use of insulin ([facility]) Cellulitis of face Cellulitis and abscess of face Contact dermatitis, unspecified contact dermatitis type, unspecified trigger documented in this encounter Additional Health Concerns Assessment Noted Time PHQ-9 Depression Total Score: 0 09/09/19 24 3:07 PM EDT documented as of this encounter Care Teams Ruffler Relationship Specialty Start Date End Date Radha Mancini MD [address] [place] [id number] PCP - General Internal Medicine 02/26/23 documented as of this encounter
--- OUTSIDE RECORDS SUMMARY | 2024-07-29 10:26 | XMS_ITS | Encounter Summary ---
Author Organization [employer] Address [address] [place] [address] Care Team Providers Care Box Packer Name Role Phone Radha Mancini MD Primary Care Provide r Reason for Visit * Reason Onset Date Comments Chart Prep 07/24/2024 Encounter Details Date Type Department Care Team ([facility] st Contact Info) Description 07/24/2024 Telephone [facility] [address] [place], [place] [phone] Radha Mancini MD [address] [place], [place] [phone] Chart Prep Social History Tobacco Use Types Packs/Day Years [...] encounter Miscellaneous Notes * Telephone Encounter - Kristi Butler MA - 07/24/2024 2:47 PM EDT Chart Prep Labs: not done Images: not applicable Referrals: not applicable Vaccines due: Covid, Flu, PCV20, Tdap, and Zoster Screenings: not applicable Overdue care gaps: LOY-7 and Disability screen documented in this encounter Plan of Treatment Not on file documented as of this encounter Visit Diagnoses Not on filedocumented in this encounter Additional Health Concerns Assessment Noted Time PHQ-9 Depression Total Score: 0 09/09/19 24 3:07 PM EDT documented as of this encounter Care Teams Box Packer Relationship Specialty Start Date End Date Radha Mancini MD [address] [place] [phone] PCP - General Internal Medicine 02/26/23 documented as of this encounter
--- OUTSIDE RECORDS SUMMARY | 2024-07-29 10:26 | XMS_ITS | Encounter Summary ---
Author Organization [employer] Address [address] [place] [address] Care Team Providers Care Slunk Skinner Name Role Phone Radha Mancini MD Primary Care Provide r Encounter Details Date Type Department Care Team (Latest Contact Info) Description 07/27/2024 Travel Social History Tobacco Use Types Packs/Day Years [...] AM EDT documented as of this encounter Functional Status * Over the [...] Sanchez MA documented as of this encounter Plan of Treatment Not on file documented as of this encounter Visit Diagnoses Not on filedocumented in this encounter Additional Health Concerns Assessment Noted Time PHQ-9 Depression Total Score: 0 09/09/19 24 3:07 PM EDT documented as of this encounter Care Teams Slunk Skinner Relationship Specialty Start Date End Date Radha Mancini MD [address] [place] [phone] PCP - General Internal Medicine 02/26/23 documented as of this encounter
[2024-07-29 11:44] LABS: TSH reflex Free T4 1.33 uIU/mL (0.32-4.0)
[2024-07-29 11:57] LABS: HBS Num1 0.14 mIU/mL (0-7.99); HBc Num1 0.76 S/CO (0.00-0.79); HBsAGNum1 0.39 S/CO (0.00-0.99); HIV AB/AG Nonreactive (Nonreactive); HIV Num 1 0.06 S/CO (0.00-0.99); Hepatitis B Core Antibody Nonreactive (Nonreactive); Hepatitis B Surface Antigen Negative (Negative); ~HepC Num1 0.08 S/CO (0.00-0.79); ~Hepatitis B Surface Antibody NONREACTIVE (Nonreactive); ~Hepatitis C Antibody Nonreactive (Nonreactive)
[2024-07-30 11:38] LABS: RPR Rapid Plasma Reagin NON-REACTIVE (NON-REACTIVE)
== END 2024-07-29 09:47 | disposition home or self-care (01) ==
LOC: HO.HHCL 09:46
PROVIDERS: Visit Provider Emergency Medicine
DX: R21 Rash and other nonspecific skin eruption (principal)
CPT/HCPCS: 36415; 84443; 86592; 86704; 86706; 86803; 87340; 87389

== ENCOUNTER 2024-07-30 14:30 | Emergency (ER) | payer OTHER, SELFPAY ==
[2024-07-30 14:36] VITALS: BP 157/80; PULSE 69; RESP 18; TEMP 36.8; O2SAT 98; BMI 28.6
--- NOTE | 2024-07-30 14:38 | ED_ITS ---
HPI - General Adult General Chief complaint: Skin/Abscess/Foreign Body Stated complaint: rash all over Time Seen by Provider: 07/30/24 18:35 Source: patient Mode of arrival: ambulatory Limitations: no limitations History of Present Illness ED Provider: Dr. Polly Persaud HPI narrative: patient comes to the emergency room complaining of an itchy rash. Patient states that it is in the back of the head, upper chest, and some in distal extremities and forearms. Patient denies any fever chills, denies any recent viral illnesses. Patient denies any new products, denies staying anywhere else, patient lives in a basement with his Related Data Home Medications ?Medication ?Instructions ?Recorded ?Confirmed atorvastatin 40 mg tablet 40 mg PO DAILY 08/14/23 cyclobenzaprine 10 mg tablet 10 mg PO BEDTIME 08/14/23 empagliflozin 10 mg tablet 10 mg PO DAILY 08/14/23 (Jardiance) omeprazole 40 mg capsule,delayed 40 mg PO DAILY 08/14/23 release amlodipine 5 mg tablet 5 mg PO DAILY 10/18/23 Previous Rx's ?Medication ?Instructions ?Recorded aluminum hydrox-magnesium carb 254 10 ml PO QID PRN dyspepsia #355 mL 06/26/23 mg-237.5 mg/5 mL oral suspension (Gaviscon Extra Strength) sennosides 8.6 mg tablet (Senokot) 17.2 mg (2 x 8.6 mg) PO DAILY #180 08/14/23 tabs diphenhydramine HCl 2 % topical 1 appl topical TID PRN skin 07/30/24 gel (Benadryl) irritation #103 mL hydrocortisone 2.5 % topical cream 1 appl topical QID #30 grams 07/30/24 hydroxyzine HCl 25 mg tablet 25 mg PO BID PRN itching #14 tabs 07/30/24 Allergies Allergy/AdvReac Type Severity Reaction Status Date / Time No Known Allergies Allergy Verified 07/30/24 14:38 Review of Systems 2 Review of Systems: Constitutional : No Weight loss, No Fever, No Chills, No Night Sweats, No Fatigue, No Malaise ENT/Mouth : No Hearing loss, No Ear Pain, No Nasal Congestion, No Sinus Pain, No Hoarseness, No sore throat, No Rhinorrhea, No Swallowing Difficulty Eyes: No Eye Pain, No Swelling, No Redness, No Foreign Body, No Discharge, No Vision Changes Cardiovascular : No Chest Pain, No SOB, No Dyspnea on Exertion, No Orthopnea, No Edema, No Palpitations Respiratory : No Cough, No Sputum, No Wheezing, No Smoke Exposure, No Dyspnea Gastrointestinal : No Nausea, No Vomiting, No Diarrhea, No Constipation, No abdominal Pain, No Hematochezia, No Melena Genitourinary : no irregular bleeding, No Dysuria, No Urinary Frequency, No Hematuria, No Urinary Incontinence, No Urgency, No Flank Pain, No Urinary Flow Changes, No Hesitancy Musculoskeletal : No joint pain, No Myalgias, No Joint Swelling Skin : complaining of itchy skin rash Neuro : No Weakness, No Numbness, No Paresthesias, No Loss of Consciousness, No Dizziness, No Headache Psych : No Anxiety/Panic, No Depression, No SI/HI/AH/VH, No Social Issues, Heme/Lymph: No Bruising, No Bleeding,No Lymphadenopathy Endocrine : No Polyuria, No Polydipsia, No Temperature Intolerance PMFSH Past Medical History Surgical History Hx of colonoscopy Hx of thyroidectomy Social History Social History Advance Directives: No Advance Directives Information Provided: No Physical Exam ED Vital Signs: Vital Signs - 24 hr 07/30/24 14:36 Temperature 98.2 F Pulse Rate 69 Respiratory Rate 18 Blood Pressure 157/80 H Pulse Oximetry 98 Oxygen Delivery Method Room Air BMI result Body Mass Index 28.6 Const Other: Appearance: Alert. Oriented X3. No acute distress. Eyes: Pupils equal, round and reactive to light. ENT: Pharynx normal. Neck: Normal inspection. Neck supple. No lymph nodes noted. No crepitus CVS: Normal heart rate and rhythm. Pulses normal. Normal S1 and S2 Respiratory: No respiratory distress. Breath sounds normal. No Wheezing. No rales Abdomen: Soft and nontender. No rigidity. No distention. Skin: Skin warm and dry. Normal skin color. Normal skin turgor. in patient's back of the head and neck, torso, forearms and distal lower extremities, patient has a rash, looks like insect bites, no vesicles, patient has multiple scratches from itching throughout his chest Extremities: No lower extremity edema. No Lacerations. No Rash Neuro: Oriented X 3. No motor deficit. No sensory deficit. Moving all extremities. No slurred speech. CN 2 through 12 grossly intact Psych: calm, cooperative, normal affect Course Course Course Narrative: RME, this is a rapid medical exam performed by Arturo Vasquez please refer to primary provider for complete H&P- 59-year-old male presents for evaluation of a rash to mostly his chest that was some involvement of the hands, K sand legs. The rash has been present for 1 week. Plan for labs Medical Decision Making Medical Decision Making [facility] Narrative: patient's labs did not show any significant acute abnormality, Both hematology and chemistry according to the patient, he does not have any concerns of having bedbugs in his residence. Patient states that he does live in a basement but it is fairly clean in no One visits. Lab Data [facility] Lab Attestation statement: I reviewed the patient's lab results. 07/30/24 14:45 07/30/24 14:45 Labs: Lab Results 07/30/24 Range/Units 14:45 WBC 11.0 H (4.8-10.8) X10*3/uL RBC 5.42 (4.60-5.80) X10*6/uL Hgb 15.9 (14.0-18.0) g/dl Hct 47.9 (42.0-52.0) % MCV 88.4 (80.0-98.0) fL MCH 29.3 (27.0-33.0) pg MCHC 33.2 (31.0-36.0) g/dl RDW 14.5 (11.0-16.0) % Plt Count 152 L (160-400) X10*3/uL MPV 12.4 (9.4-12.4) fL Immature Gran % (Auto) 0.2 (0.0-0.4) % Neut % (Auto) 33.3 L (45-73) % Lymph % (Auto) 42.9 H (20-40) % Henderson % (Auto) 18.2 H (2-11) % Eos % (Auto) 4.9 H (0-4) % Baso % (Auto) 0.5 (0-2) % Lymph # (Auto) 4.7 (1.2-4.9) X10*3/uL Henderson # (Auto) 2.0 H (0.1-1.2) X10*3/uL Eos # (Auto) 0.5 H (0.0-0.4) X10*3/uL Baso # (Auto) 0.1 (0.0-0.2) X10*3/uL Abs Immat Gran (auto) 0.02 (0.00-0.03) X10*3/uL Absolute Neuts (auto) 3.6 (2.0-8.3) x10*3/uL Absolute Nucleated RBC 0.000 (0.0-0.012) X10*3/uL Nucleated RBC % (auto) 0.0 (0.0-0.2) /100WBC Smear Tech's Comments VERIFIED ESR 4 (0-15) MM/HR Sodium 139 (135-145) mmol/L Potassium 3.4 D (3.3-5.1) mmol/L Chloride 103 (96-108) mmol/L Carbon Dioxide 25 (22-29) mmol/L Anion Gap 14 (12-20) BUN 20 H (9-16) mg/dL Creatinine 0.96 (0.5-1.4) mg/dL Estim Creat Clear Calc 77.7 Estimated GFR > 60 Random Glucose 100 (60-115) mg/dL Calcium 9.5 (8.4-10.2) mg/dL C-Reactive Protein 0.57 H (< or = 0.50) mg/dL Discharge Plan Discharge Clinical Impression: Rash Patient Disposition: Home, Self-Care Instructions: Acute Rash (ED) Additional Instructions: Please follow-up with your primary care physician tomorrow. If you have any worsening or new symptoms, please return to the emergency room or call 911 Prescriptions: New hydrocortisone 2.5 % cream 1 appl topical QID Qty: 30 0RF Benadryl 2 % gel 1 appl topical TID PRN (Reason: skin irritation) Qty: 103 0RF hydroxyzine HCl 25 mg tablet 25 mg PO BID PRN (Reason: itching) Qty: 14 0RF No Action Gaviscon Extra Strength 254-237.5 mg/5 mL suspension 10 ml PO QID PRN (Reason: dyspepsia) Qty: 355 0RF omeprazole 40 mg capsule,delayed release(DR/EC) 40 mg PO DAILY Jardiance 10 mg tablet 10 mg PO DAILY atorvastatin 40 mg tablet 40 mg PO DAILY cyclobenzaprine 10 mg tablet 10 mg PO BEDTIME sennosides [Senokot] 8.6 mg tablet 17.2 mg PO DAILY Qty: 180 3RF amlodipine 5 mg tablet 5 mg PO DAILY Print Language: Tajik
[2024-07-30 14:52] LABS: Basophils Absolute Auto 0.1 X10*3/uL (0.0-0.2); Basophils Percent Auto 0.5 % (0-2); Eosinophils Absolute Auto 0.5 X10*3/uL (0.0-0.4); Eosinophils Percent Auto 4.9 % (0-4); Hematocrit 47.9 % (42.0-52.0); Hemoglobin 15.9 g/dl (14.0-18.0); Imm Gran Abs Auto 0.02 X10*3/uL (0.00-0.03); Imm Gran Pct Auto 0.2 % (0.0-0.4); Lymphocytes Absolute Auto 4.7 X10*3/uL (1.2-4.9); Lymphocytes Percent Auto 42.9 % (20-40); MANUAL DIFF FLAG SCAN; Mean Corpuscular HGB Conc 33.2 g/dl (31.0-36.0); Mean Corpuscular Hemoglobin 29.3 pg (27.0-33.0); Mean Corpuscular Volume 88.4 fL (80.0-98.0); Mean Platelet Volume 12.4 fL (9.4-12.4); Monocytes Percent Auto 18.2 % (2-11); Neutrophils Absolute Auto 3.6 x10*3/uL (2.0-8.3); Neutrophils Percent Auto 33.3 % (45-73); Platelet Count 152 X10*3/uL (160-400); Red Blood Count 5.42 X10*6/uL (4.60-5.80); Red Cell Distribution Width 14.5 % (11.0-16.0); SCAN SMEAR FLAG 1
[2024-07-30 15:08] LABS: Anion Gap 14 (12-20); Blood Urea Nitrogen 20 mg/dL (9-16); C Reactive Protein 0.57 mg/dL (< or = 0.50); Calcium 9.5 mg/dL (8.4-10.2); Carbon Dioxide 25 mmol/L (22-29); Chloride 103 mmol/L (96-108); Creatinine Clr Calc Pharmacy 77.7; Estimated Glomerular Filt Rate > 60; Glucose Random 100 mg/dL (60-115); Potassium 3.4 mmol/L (3.3-5.1); Sodium 139 mmol/L (135-145)
[2024-07-30 15:28] LABS: SLIDE REVIEW VERIFIED
[2024-07-30 15:29] LABS: Erythrocyte Sedimentation Rate 4 MM/HR (0-15)
[2024-07-30 19:26] VITALS: BP 160/91; PULSE 65; RESP 19; TEMP 36.6; O2SAT 98
[2024-07-30 19:32] VITALS: BP 160/91; PULSE 65; RESP 19; TEMP 36.6; O2SAT 98
== END 2024-07-30 19:32 | disposition home or self-care (01) ==
PROVIDERS: Physician Assistant; Emergency Provider Emergency Medicine; PCP Internal Medicine
DX: R21 Rash and other nonspecific skin eruption (principal)
CPT/HCPCS: 36415; 80048; 85025; 85652; 86140; 99282; 99283